=== PATIENT | female | born 1995 | race Two or more races ===

== ENCOUNTER 2017-01-03 10:45 | Inpatient (IN) | payer MEDICAID ==
[2017-01-03] MEDS ORDERED: Misoprostol 400 MCG (4 X 100 MCG TAB) RECTAL PRN (11:58)
[2017-01-03] MEDS ORDERED: Carboprost Tromethamine 250 MCG/1 ML Amp IM PRN (11:58)
[2017-01-03] MEDS ORDERED: Methylergonovine 0.2 MG/1 ML Amp IM PRN (11:58)
[2017-01-03] MEDS ORDERED: Acetaminophen 325 MG Tab PO PRN ×2 (11:58)
[2017-01-03] MEDS ORDERED: Ondansetron 4 MG/2 ML SDV IV PRN (11:58)
[2017-01-03] MEDS ORDERED: Lidocaine 1% 30 ML SDV INJECT PRN (11:58)
[2017-01-03] MEDS ORDERED: Sodium Chloride 0.9% 10 ML Syringe FLUSH PRN (11:58)
[2017-01-03] MEDS ORDERED: Lactated Ringers 500 ML IV ONE (11:58)
[2017-01-03] MEDS: Misoprostol 25 MCG (1/4 of 100 MCG) Tab VAG PRN ×3 (12:59→21:37)
--- NOTE | 2017-01-03 15:04 | HP ---
PATIENT IDENTIFICATION: Ligia Sanchez is a 21-year-old G1, P0, intrauterine at 37-4/7 weeks, confirmed with 21-1/7th week ultrasound that is being admitted for preeclampsia. HISTORY OF PRESENT ILLNESS: The patient was seen in the clinic this morning. Had blood pressures of 140s to 130s over 90s. Workup was done for preeclampsia, it did reveal protein creatinine ratio of 0.3. She was sent over the hospital for a nonstress test and evaluation and had elevated blood pressures there. Because of this, it was discussed that patient has preeclampsia suspected, and induction labor will be started with Cytotec. She had an unripe cervix. Please see below in regards to this. The patient denies any headaches, visual changes, or upper abdominal pain. Records were called for, reviewed as below and supplemented by patient history. ANTEPARTUM LABORATORY DATA: ABO blood type O positive, negative antibody. Rubella immune. RPR nonreactive. Negative hepatitis B surface antigen. Negative hep C, HIV, GC, and Chlamydia. Wet prep within normal limits. One- hour GTT was 100. GBS negative on 12/20/2016. For the rest of the history and physical exam, assessment and plan, review of systems, please see EPIC notes to be scanned in. LABORATORY DATA: Labs from today through the clinic did reveal a protein creatinine ratio 0.3. CBC with a white cell count 8.3, hemoglobin 11.6, platelets were 349. Urinalysis, otherwise within normal limits. Waiting AST, ALT, BUN, creatinine, as well as uric acid. ASSESSMENT AND PLAN: 1. Intrauterine at 37-4/7th weeks, confirmed 21-1/7th week ultrasound. 2. Preeclampsia with hypertension diagnosed, and urine protein creatinine ratio at 0.3. 3. Group B Streptococcus negative. 4. Positive THC on urine drug screen 06/20/2016. 5. VB-treated. 6. G1, P0. PLAN: The patient will be admitted. I did discuss with her using Cytotec type induction. I discussed risks, benefits, alternatives, and complications of Cytotec use. Written and verbal consent obtained. Questions were answered. [facility] /[id number]
--- NOTE | 2017-01-03 15:07 | OBOUT ---
DATE: 01/03/2017 DATE AND TIME OF NST: Date: 01/03/2017. TIME: 1100 hours to 1120 hours. REASON FOR NST: 1. Intrauterine at 37-4/7th weeks. 2. Preeclampsia. 3. Group B strep negative. 4. Positive THC on urine drug screen 06/20/2006. 5. BV-treated. 6. G1, P0. NST INTERPRETATION: During this time period, heart tone baseline is approximately 145 and there are at least two 15 x 15 beat per minute accelerations, making this strip reactive. It is also noted to be reassuring. Tocometer reveals no evidence of contraction. Blood pressure during this time 142/76, with a heart rate of 72. ASSESSMENT: 1. Non-stress test reactive and reassuring. 2. Tocometer without contractions. PLAN: Please see admit history and physical for further details. [facility] /[id number]
[2017-01-04] MEDS: Misoprostol 25 MCG (1/4 of 100 MCG) Tab VAG PRN ×2 (01:49→08:12)
[2017-01-04] MEDS: Lactated Ringers 1,000 ML IV SCH ×3 (02:44→17:40)
[2017-01-04] MEDS ORDERED: Oxytocin/Normal Saline 30 UNITS/500 ML BAG IV SCH (08:30)
--- NOTE | 2017-01-04 11:11 | PN ---
DATE: 01/03/2017 SUBJECTIVE: The patient has felt occasional contraction, nothing serious, and they seems to wax and wane. She denies any headaches, visual changes, or upper abdominal pain. OBJECTIVE: heart tones in the 120s with one acceleration seen recently, tocometer reveals occasional contraction. Vaginal exam reveals her to be finger tip, 50% effaced, -1 or -2 station, vertex suspected, and Cytotec 25 mcg vaginally was placed, and this is her third dose after discussion with the patient. Last blood pressure 152/70. ASSESSMENT AND PLAN: Intrauterine at 37-4/7 weeks confirmed with 21- 1/7 week ultrasound, complicated by preeclampsia, no severe features at this point in time. We will continue with Cytotec-type induction. Follow clinically and closely. This was discussed with the patient, she understands and agrees with the above treatment plan. [facility] /[id number]
--- NOTE | 2017-01-04 11:38 | PN ---
DATE: 01/04/2017 SUBJECTIVE: The patient had some contractions through the timber management professor to the point that Cytotec could not be placed between 4 and 5 a.m. Subsequently, the patient was in the tub for a while. Her contractions abated thereafter. She has not felt any contractions currently and is sleeping. She denies any headaches, visual changes, or upper abdominal pain. OBJECTIVE: Her last blood pressure was 120s over 70s. Tocometer reveals occasional contraction. Her heart tones are in the 120s-130s, felt to be reactive and reassuring. Vaginal exam reveals her to be finger tip, 50% effaced, -1 to -2 station, vertex expected and 25 mcg of Cytotec was placed vaginally after discussion with the patient. ASSESSMENT AND PLAN: Intrauterine now at 37 and 5/7th weeks, confirmed with 21 and 1/7th weeks ultrasound, status post Cytotec x5, complicated by preeclampsia. No severe features at the current time. CBC will be drawn later today to follow for any evidence of thrombocytopenia or HELLP and we will follow closely and clinically. The patient understands and agrees with the above treatment plan. [facility] /[id number]
[2017-01-04] MEDS ORDERED: Oxytocin/Normal Saline 30 UNIT/500 ML BAG IV SCH (12:15)
--- NOTE | 2017-01-04 12:43 | PN ---
DATE: 01/04/2017 SUBJECTIVE: Patient feels occasional contractions. OBJECTIVE: heart tones in the 135 to 140, range felt to be reactive. Tocometer reveals contractions every couple of minutes at the closest, otherwise they are irregular. Vaginal exam reveals her to be unchanged from before. Finger tip, unable to insert finger into the cervix, with 50% effaced, -1 to - 2 station, vertex suspected. ASSESSMENT AND PLAN: Intrauterine at 37 and 5/7th weeks confirmed with 21 and 1/7th week ultrasound complicated by preeclampsia. CBC done earlier today does not reveal evidence of thrombocytopenia. She is now status post Cytotec x5 and we will start low-dose Pitocin and follow closely. Orders have been instituted and this has been discussed with nurses as well. We will continue to follow clinically and closely. [facility] /[id number]
[2017-01-04] MEDS ORDERED: Nalbuphine 10 MG/1 ML Vial IM ONE (16:30)
--- NOTE | 2017-01-04 20:46 | PCM.SN ---
- Free Text/Narrative Note: Intrathecal. Sitting position, sterile prep and drape. 1 % lidocaine w bicarb for skinwheal to L3 L4 interspace, introducer, 24 ga pencan x 1. Pos CSF neg heme, neg parasthesia. 15 mcg pf sufenta, 35 mcg pf fentanyl, 0.4 ml pf ns and 6 mg of 0.75% pf bupivacaine injected after CSF aspiration. Pt to L lateral position. Procedure time 2024 to 2049
[2017-01-04] MEDS ORDERED: Benzocaine/Menthol 20%-0.5% Spray 56 GM Canister TOP PRN (21:41)
[2017-01-04] MEDS ORDERED: Docusate Sodium 100 MG Cap PO PRN (21:41)
[2017-01-04] MEDS ORDERED: Simethicone 80 MG Tab.Chew PO PRN (21:41)
[2017-01-04] MEDS ORDERED: Oxytocin 10 Units/1 ML SDV IM PRN (21:41)
[2017-01-04] MEDS ORDERED: Zolpidem 5 MG Tab PO PRN (21:41)
[2017-01-04] MEDS ORDERED: cefTRIAXone 1 GM in Sodium Chloride 0.9% 50 ML IV ONE (21:51)
[2017-01-04] MEDS: Ibuprofen 800 MG Tab PO PRN (22:37)
[2017-01-04] MEDS: Acetaminophen/HYDROcodone 325-10 MG Tab PO PRN (23:07)
[2017-01-05] MEDS: Acetaminophen/HYDROcodone 325-10 MG Tab PO PRN (03:00)
--- NOTE | 2017-01-05 08:25 | PN ---
DATE: 01/04/2017 SUBJECTIVE: The patient's contractions are felt in the lower back, radiating down to the butt area, almost as if she has to have a bowel movement, coming every so often. She has refused Pitocin at this point in time and has been asking for a . OBJECTIVE: Vital signs: Last blood pressure 144/61, heart rate 64. heart tones in the 120s, baseline range, acceleration noted with vaginal exam. Tocometer reading contractions every 3 to 5-6 minutes. Vaginal exam reveals her to be 9 cm, 100% effaced, 0 to - 1 station, vertex suspected. ASSESSMENT AND PLAN: Active labor with advanced cervical dilation, nearing the second stage of labor. The patient is requesting an intrathecal. At this point in time, anesthesia has been called to proceed with some sort of spinal intrathecal anesthesia. We will continue to follow maternal status closely in the interim. This was discussed with the patient. Room will be set up for delivery. [facility] /[id number]
--- NOTE | 2017-01-05 08:49 | DEL ---
DATE: 01/04/2017 PREOPERATIVE DIAGNOSES: 1. Intrauterine at 37-5/7 weeks, confirmed with 21-1/7 week's ultrasound. 2. bradycardia. 3. Preeclampsia-mild. 4. Group B Streptococcus negative. 5. Positive THC on urine drug screen on 06/20/2016, negative on admission. 6. Bacterial vaginosis-treated. 7. 1, para 0. POSTOPEARTIVE DIAGNOSES: 1. Intrauterine at 37-5/7 weeks, confirmed with 21-1/7 week's ultrasound-delivered. 2. bradycardia. 3. Preeclampsia-mild. 4. Group B Streptococcus negative. 5. Positive THC on urine drug screen on 06/20/2016, negative on admission. 6. Bacterial vaginosis-treated. 7. 1, para 0. 8. hemorrhage with estimated blood loss of 500 mL. 9. Uterine atony, requiring Hemabate. 10.Retained placental parts, requiring bimanual examination and uterine curettage via fingers, removing placental membranes. 11.First-degree perineal laceration-repaired. PROCEDURE PERFORMED: NST, Cytotec x5, Pitocin augmentation, and then subsequently vacuum-assisted vaginal delivery with first-degree perineal laceration-repaired, followed by bimanual uterine curettage, removing placental membranes. STACKER ATTENDANT: Rj Kevin, MS III. ANESTHESIA/ANAGLESIA: The patient did receive an intrathecal in the first stage of labor. She also received 1% lidocaine without epinephrine, approximately 10 mL, for local repair. FINDINGS: Male, scores of 8 and 9, weight was 3035 g, 6 pounds 11 ounces. Trailing membranes were noted as well as bimanual uterine curettage, revealing removal of placental parts. SUMMARY OF EVENTS: The patient is a 21-year-old G1, P0 intrauterine at 37-4/7 weeks upon admission on 01/03/2017, diagnosed with preeclampsia-mild, induced with Cytotec x5, followed by Pitocin augmentation. She was very slow to progress until the last 2 hours and was found to be 9 cm, requesting something for pain. Received an intrathecal/saddle block. Subsequently, there was noted to be some heart tones that were in a deceleration pattern, but unable to detect contractions very well on the tocometer. I was called to the room, donned sterile gown and gloves as well as did Rj Kevin. She started pushing with contraction. bradycardia ensued thereafter with heart tones in the 80s to 90s. Because of this, bladder was catheterized with return of 20 mL of a yellow-colored urine. The catheter was removed. Subsequently discussion ensued in regard to vacuum-assisted vaginal delivery. I did discuss with the patient and her female partner the risks, benefits, alternatives and complications of vacuum-assisted vaginal delivery. They understood and agreed and wished to proceed. Subsequently, the patient pushed with the next contraction, vertex was seen splitting the labia and Kiwi vacuum was applied. With the next set of contractions, patient started pushing with contractions, and during this time period, Kiwi vacuum was pumped up to the green, and with gentle pulling pressure, further descent was noted. With a few more sets of contractions, subsequently vertex was delivered. Vacuum was disengaged. There was some difficulty delivering the anterior shoulder. The baby had turned from PARTH to a LANE presentation. Subsequently, anterior shoulder as well as the rest of the infant delivered without difficulty thereafter. Mouth and nares were suctioned. Cord was doubly clamped and cut. Infant was brought over to team. Then, approximately 10 mL of cord blood was obtained for labs. Placenta then delivered with gentle cord traction and fundal massage within 5-15 minutes. There was noted to be some significant bleeding at that time. Uterine atony was noted. Pitocin was started as well as uterine massage. Despite this, continued bleeding was noted. Hemabate was called for and given. With delivery of the placenta, there was noted to be some trailing membranes. This was teased out with ring forceps. Because of continued bleeding despite the above modifications, bimanual exam was done with finger uterine curettage of the lower uterine segment revealing placental membranes, which were removed. Bleeding decreased significantly thereafter. Perineum, vagina, and perirectal areas were then examined and noted to have a first-degree perineal laceration that was anesthetized in the usual fashion and repaired in the usual fashion using 3-0 Vicryl. Mother and infant are currently stable at the time of dictation. [facility] /[id number] [facility]IC[facility]ney
[2017-01-05] MEDS: Ibuprofen 800 MG Tab PO PRN ×2 (09:17→17:29)
[2017-01-05] MEDS: Ferrous Sulfate 325 MG Tab PO SCH (09:17)
[2017-01-05] MEDS: Prenatal Multivitamin with Calcium/Folic Acid/Iron Tab PO SCH (09:19)
[2017-01-06] MEDS: Ibuprofen 800 MG Tab PO PRN (09:06)
[2017-01-06] MEDS: Prenatal Multivitamin with Calcium/Folic Acid/Iron Tab PO SCH (09:07)
[2017-01-06] MEDS: Ferrous Sulfate 325 MG Tab PO SCH (09:07)
[2017-01-06 11:31] VITALS: BP 117/45
--- NOTE | 2017-01-06 11:31 | DISCH ---
ADMIT DIAGNOSES: 1. Intrauterine at 37-4/7 weeks, confirmed with 21-1/7 week's ultrasound. 2. Preeclampsia-mild. 3. Group B Streptococcus negative. 4. Positive THC on urine drug screen on 06/20/2016, negative upon admission. 5. Bacterial vaginosis-treated. 6. 1, para 0. DISCHARGE DIAGNOSES: 1. Intrauterine at 37-4/7 weeks, confirmed with 21-1/7 week's ultrasound-delivered at 37-5/7 weeks. 2. Preeclampsia-mild. 3. Group B Streptococcus negative. 4. Positive THC on urine drug screen on 06/20/2016, negative upon admission. 5. Bacterial vaginosis-treated. 6. 1, para 0. 7. hemorrhage, estimated blood loss 500 mL. 8. Uterine atony, requiring Hemabate. 9. Retained placental parts, requiring bimanual curettage of lower uterine segment/uterus. 10. bradycardia. 11.First-degree perineal laceration-repaired. 12.Anemia of acute blood loss with hemoglobin dropping down to 9.8 from 10.9. PROCEDURE PERFORMED: NST, Cytotec x5, Pitocin augmentation, and then subsequent vacuum-assisted vaginal delivery on 01/04/2017. These were all per Dr. Germain. Please see procedure notes for further details. HISTORY OF PRESENT ILLNESS: Please see H and P. SUMMARY OF HOSPITAL COURSE: Patient admitted on the above date with the above diagnoses with mild preeclampsia, underwent the above interventions for induction of labor. She subsequently went on to have a vacuum-assisted vaginal delivery with first-degree perineal laceration that was repaired, yielding a male with scores of 8 and 9, weighing 3035 g (6 pounds 11 ounces). day #1, please progress note. day #2, on date of discharge, the patient was tolerating p.o., ambulating, urinating, passing flatus, requesting discharge. Last set of vitals updated and listed in the chart. PHYSICAL EXAMINATION: Vial Signs: Temperature 98, heart rate 61, blood pressure 117/53, respiratory rate is 16. Lungs: Clear to auscultation bilaterally. Heart: S1, S2. Regular rate and rhythm. : Firm uterus at the umbilicus. Extremities: Trace pedal edema. No calf pain. LABORATORY DATA: Pending is a discharge CBC. CONDITION ON DISCHARGE COMPARED TO CONDITION ON ADMISSION: Improved. DISCHARGE INSTRUCTIONS: 1. Diet, as tolerated. 2. Activity, no lifting more than 10 to 15 pounds. 3. No sit-ups, straining and pelvic rest for next 6 weeks with immediate return to fertility discussed with the patient. 4. Reasons to return or go to the emergency room were discussed with the patient in detail including, but not limited to, temperature greater than 100.4, foul-smelling discharge, red, hot tender breasts, or increased vaginal bleeding. DISCHARGE MEDICATIONS: 1. [id number] Tylenol or ibuprofen for pain. 2. Iron sulfate 325 b.i.d. x6 weeks. FOLLOWUP: Follow up 6 weeks for . PLAN: I did discuss the importance of followup of her infant as well as reasons to return or go to the emergency room in the interim with her and ramifications of not doing so. She understands and agrees. Will follow up with her infant on 01/09/2017. [facility] /[id number]
[2017-01-06] MEDS ORDERED: fentaNYL 100 MCG/2 ML SDV IV ONE (11:58)
--- NOTE | 2017-01-10 07:56 | PN ---
DATE: 01/05/2017 day #1. SUBJECTIVE: The patient is tolerating POs, ambulating, urinating, and passing flatus. OBJECTIVE: Vital Signs: Last set of vitals updated and listed in the chart; temperature 97.8, heart 73, blood pressure 105/47, respiratory rate 16. Lungs: Clear to auscultation bilaterally. Heart: S1, S2. Regular rate and rhythm. : Firm uterus approximately at the umbilicus. No peripheral edema. LABORATORY DATA: Labs on 01/05/2017, white cell count 16, hemoglobin 9.8, platelets 256. ASSESSMENT: day #1, status post vaginal delivery with vacuum- assisted vaginal delivery and first-degree perineal laceration repaired followed by bimanual removal of uterine clots and removing placental membranes. PLAN: We will continue to follow clinically and closely. CBC in the morning. Possible discharge tomorrow. [facility] /[id number]
== END 2017-01-06 11:59 | disposition home or self-care (01) | DRG 767 ==
LOC: DL.OBCHECK 10:45 → DL.OB 11:48 → OBSVTOIN 01-04 21:06
PROVIDERS: ADMIT Family Medicine; ATTEND Family Medicine
PROC: 10D07Z6 Extraction of Products of Conception, Vacuum, Via Natural or Artificial Opening (ICD-10-PCS; principal; 2017-01-04)
PROC: 10D17ZZ Extraction of Products of Conception, Retained, Via Natural or Artificial Opening (ICD-10-PCS; 2017-01-04)
PROC: 3E0P7GC Introduction of Other Therapeutic Substance into Female Reproductive, Via Natural or Artificial Opening (ICD-10-PCS; 2017-01-04)
PROC: 00HU33Z Insertion of Infusion Device into Spinal Canal, Percutaneous Approach (ICD-10-PCS; 2017-01-04)
PROC: 3E0R3CZ (ICD-10-PCS; 2017-01-04)
PROC: 0HQ9XZZ Repair Perineum Skin, External Approach (ICD-10-PCS; 2017-01-04)
DX: O14.04 Mild to moderate pre-eclampsia, complicating childbirth (principal); D62 Acute posthemorrhagic anemia; O70.0 First degree perineal laceration during delivery; O72.1 Other immediate postpartum hemorrhage; O72.2 Delayed and secondary postpartum hemorrhage; O75.3 Other infection during labor; O90.81 Anemia of the puerperium; O76 Abnormality in fetal heart rate and rhythm complicating labor and delivery; Z3A.37 37 weeks gestation of pregnancy; Z37.0 Single live birth; N76.0 Acute vaginitis
CPT/HCPCS: 01967; 36415; 59025; 80305; 85027; A9270-GY; J0696; J2405; J2590; J3010; J7050; J7120

== ENCOUNTER 2017-08-07 15:28 | Emergency (ER) | payer MEDICAID ==
[2017-08-07 15:44] VITALS: BP 130/86
== END 2017-08-07 16:25 | disposition left against medical advice (07) ==
LOC: DL.ED 15:28
DX: Z53.21 Procedure and treatment not carried out due to patient leaving prior to being seen by health care provider (principal)
CPT/HCPCS: 81001; 81025; 99282

== ENCOUNTER 2017-08-19 12:43 | Emergency (ER) | payer BC, MEDICAID ==
[2017-08-19 13:16] VITALS: BP 123/75
[2017-08-19] MEDS ORDERED: Sodium Chloride 0.9% 1,000 ML IV ONE (13:24)
--- NOTE | 2017-08-19 13:24 | EDM.PDOC ---
ED HPI GENERAL MEDICAL PROBLEM - General Chief Complaint: Abdominal Pain Stated Complaint: LOWER ABD PAINS, [id number] Time Seen by Provider: 08/19/17 13:23 Source of Information: Reports: Patient History Limitations: Reports: No Limitations - History of Present Illness INITIAL COMMENTS - FREE TEXT/NARRATIVE: 22 yo white Female c/o low mid abdomen pain and bladder spasms. Also frequent urination X 2 weeks. Seen at PCP office yesterday. Onset Date: 08/05/17 Onset Time: 12:00 Duration: Week(s): Location: Reports: Abdomen Quality: Reports: Pressure Severity: Moderate Improves with: Reports: None Worsens with: Reports: None Associated Symptoms: Reports: No Other Symptoms Left Lower Abdomen Pain Score (Numeric/FACES): 7 - Related Data Allergies Allergy/AdvReac Type Severity Reaction Status Date / Time No Known Allergies Allergy Verified 08/07/17 15:43 Home Meds: Home Meds . 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: Musculoskeletal History: Reports: None Neurological History: Reports: None Psychiatric History: Reports: None Endocrine/Metabolic History: Reports: None Hematologic History: Reports: None Immunologic History: Reports: None Oncologic (Cancer) History: Reports: None Dermatologic History: Reports: None - Infectious Disease History Infectious Disease History: Reports: Chicken Pox - Past Surgical History Head Surgeries/Procedures: Reports: None HEENT Surgical History: Reports: Oral Surgery Social & Family History - Family History Family Medical History: Noncontributory - Tobacco Use Smoking Status *Q: Current Every Day Smoker Years of Tobacco use: 5 Packs/Tins Daily: 0.5 Used Tobacco, but Quit: No Second Hand Smoke Exposure: No - Caffeine Use Caffeine Use: Reports: Coffee, Soda - Alcohol Use Days Per Week of Alcohol Use: 0 - Recreational Drug Use Recreational Drug Use: Yes Drug Use in Last 12 Months: Yes Recreational Drug Type: Reports: Marijuana/Hashish Recreational Drug Use Frequency: Monthly - Living Situation & Occupation Living situation: Reports: with Family Occupation: Employed ED ROS GENERAL - Review of Systems Review Of Systems: See Below Constitutional: Reports: No Symptoms HEENT: Reports: No Symptoms Respiratory: Reports: No Symptoms Cardiovascular: Reports: No Symptoms Endocrine: Reports: No Symptoms GI/Abdominal: Reports: Abdominal Pain (low mid) : Reports: Frequency Musculoskeletal: Reports: No Symptoms Skin: Reports: No Symptoms Neurological: Reports: No Symptoms Psychiatric: Reports: No Symptoms Hematologic/Lymphatic: Reports: No Symptoms Immunologic: Reports: No Symptoms ED EXAM, GI/ABD - Physical Exam Exam: See Below Exam Limited By: No Limitations General Appearance: Alert, WD/WN, No Apparent Distress Eyes: Bilateral: EOMI Ears: Normal External Exam Nose: Normal Inspection Throat/Mouth: Normal Inspection Head: Atraumatic Neck: Normal Inspection Respiratory/Chest: No Respiratory Distress, Lungs Clear Cardiovascular: Normal Peripheral Pulses, Regular Rate, Rhythm GI/Abdominal Exam: Tender (suprapubic area) Back Exam: Normal Inspection Extremities: Normal Inspection, Normal Range of Motion Neurological: Alert, Oriented, CN II-XII Intact Psychiatric: Normal Affect, Normal Mood Skin Exam: Warm, Dry, Intact, Normal Color Lymphatic: No Adenopathy Course - Vital Signs Last Recorded V/S: Last Vital Signs Temp 36.0 C 08/19/17 13:15 Pulse 76 08/19/17 13:15 Resp 16 08/19/17 13:15 BP 123/75 08/19/17 13:15 Pulse Ox 100 08/19/17 13:15 - Orders/Labs/Meds Orders: Active Orders 24 hr Category Date Time Status CULTURE URINE [RM] Stat Lab 08/19/17 14:04 Uncollected Sodium Chloride 0.9% [Normal Saline] 1,000 ml Med 08/19/17 13:24 Active IV .BOLUS cefTRIAXone [Rocephin] 1 gm Med 08/19/17 14:04 Ordered Sodium Chloride 0.9% [Normal Saline] 50 ml IV ONETIME Medication Orders Sodium Chloride (Normal Saline) 1,000 mls @ 999 mls/hr IV .BOLUS ONE Stop: 08/19/17 14:24 Last Admin: 08/19/17 13:42 Dose: 999 mls/hr Ceftriaxone Sodium 1 gm/ (Sodium Chloride) 50 mls @ 100 mls/hr IV ONETIME ONE Stop: 08/19/17 14:33 Labs: Laboratory Tests 10/28/17 10/28/17 10/28/17 Range/Units 13:27 13:35 13:35 WBC 15.3 H (5.0-10.0) 10^3/uL RBC 4.60 (4.2-5.4) 10^6/uL Hgb 13.3 D (12.0-16.0) g/dL Hct 40.8 (37.0-47.0) % MCV 88.7 D (80-100) fL MCH 28.9 (27.0-34.0) pg MCHC 32.6 L (33.0-35.0) g/dL Plt Count 515 H D (150-450) 10^3/uL Neut % (Auto) 76.8 H (42.2-75.2) % Lymph % (Auto) 14.9 L (20.5-50.1) % [place] % (Auto) 7.4 (2-8) % Eos % (Auto) 0.7 L (1.0-3.0) % Baso % (Auto) 0.2 (0.0-1.0) % Add Manual Diff Yes Neutrophils % (Manual) 75 (42-75) % Lymphocytes % (Manual) 16 L (20-50) % Monocytes % (Manual) 8 (2-8) % Eosinophils % (Manual) 1 (1-3) % Sodium 139 (135-145) mmol/L Potassium 4.3 (3.6-5.0) mmol/L Chloride 101 (101-111) mmol/L Carbon Dioxide 29.0 (21.0-31.0) mmol/L Anion Gap 13.3 BUN 8 (7-18) mg/dL Creatinine 0.6 (0.6-1.3) mg/dL Est Cr Clr Drug Dosing 127.00 mL/min Estimated GFR (MDRD) > 60 BUN/Creatinine Ratio 13.33 Glucose 96 (74-105) mg/dL Calcium 9.0 (8.4-10.2) mg/dl Total Bilirubin 0.4 (0.2-1.0) mg/dL AST 16 (10-42) IU/L ALT 12 (10-60) IU/L Alkaline Phosphatase 92 (42-121) IU/L Total Protein 7.4 (6.7-8.2) g/dl Albumin 3.6 (3.2-5.5) g/dl Globulin 3.8 Albumin/Globulin Ratio 0.95 Urine Color Yellow (YELLOW) Urine Appearance Slightly cloudy (CLEAR) Urine pH 7.5 (5.0-9.0) Ur Specific Distant 1.015 (1.005-1.030) Urine Protein Negative (NEGATIVE) Urine Glucose (UA) Negative (NEGATIVE) Urine Ketones Negative (NEGATIVE) Urine Occult Blood Small H (NEGATIVE) Urine Nitrite Negative (NEGATIVE) Urine Bilirubin Negative (NEGATIVE) Urine Urobilinogen 0.2 (0.2-1.0) mg/dL Ur Leukocyte Esterase Small H (NEGATIVE) Urine RBC 0-5 /HPF Urine WBC 20-30 H (0-5/HPF) /HPF Ur Epithelial Cells Rare /HPF Urine Bacteria Few (0-FEW/HPF) /HPF Meds: Medications Generic Name Dose Route Start Last Admin Trade Name Freq PRN Reason Stop Dose Admin Sodium Chloride 1,000 mls @ 999 mls/hr 08/19/17 13:24 08/19/17 13:42 Normal Saline IV 08/19/17 14:24 999 mls/hr .BOLUS ONE Administration Ceftriaxone Sodium 1 gm/ 50 mls @ 100 mls/hr 08/19/17 14:04 Sodium Chloride IV 08/19/17 14:33 ONETIME ONE Departure - Departure Time of Disposition: 14:06 Disposition: Home, Self-Care 01 Condition: Good Clinical Impression: UTI (urinary tract infection) Qualifiers: Urinary tract infection type: acute cystitis Hematuria presence: with hematuria Qualified Code(s): N30.01 - Acute cystitis with hematuria - Discharge Information Forms: ED Department Discharge Additional Instructions: Increase intake of Water and Cranberry Juice Take Medication as prescribed only and complete AMOXIL 500mg BID # 18 PYRIDIUM 100mg TID # 9 F/U w/ PCP in one week for urine re-check - My Orders Last 24 Hours: My Active Orders 08/19/17 13:24 Sodium Chloride 0.9% [Normal Saline] 1,000 ml IV .BOLUS 08/19/17 14:04 CULTURE URINE [RM] Stat cefTRIAXone [Rocephin] 1 gm Sodium Chloride 0.9% [Normal Saline] 50 ml IV ONETIME - Assessment/Plan Last 24 Hours: My Active Orders 08/19/17 13:24 Sodium Chloride 0.9% [Normal Saline] 1,000 ml IV .BOLUS 08/19/17 14:04 CULTURE URINE [RM] Stat cefTRIAXone [Rocephin] 1 gm Sodium Chloride 0.9% [Normal Saline] 50 ml IV ONETIME
[2017-08-19 13:59] LABS: CHLORIDE,CL 101 mmol/L (101-111); SODIUM,NA 139 mmol/L (135-145)
[2017-08-19] MEDS ORDERED: cefTRIAXone 1 GM in Sodium Chloride 0.9% 50 ML IV ONE (14:04)
== END 2017-08-19 14:35 | disposition home or self-care (01) ==
LOC: DL.ED 12:43
DX: N30.01 Acute cystitis with hematuria (principal); F17.210 Nicotine dependence, cigarettes, uncomplicated
CPT/HCPCS: 36415; 80053; 81001; 85025; 87086; 96365; 99284; J0696; J7030; J7050

== ENCOUNTER 2017-09-30 11:09 | Emergency (ER) | payer BC, MEDICAID ==
--- NOTE | 2017-09-30 11:46 | EDM.PDOC ---
ED HPI GENERAL MEDICAL PROBLEM - General Chief Complaint: Abdominal Pain Stated Complaint: LLQ SHARP PAIN [id number] Time Seen by Provider: 09/30/17 11:37 Source of Information: Reports: Patient, RN, RN Notes Reviewed History Limitations: Reports: No Limitations - History of Present Illness INITIAL COMMENTS - FREE TEXT/NARRATIVE: Pt presents to the ER with c/o left lower quadrant abdominal pain that wraps around to the back. She rates the pain #7/10. She states she feels the need to push hard when she has to void. She admits to a UTI about 1 month ago. She states LMP was about 1 month ago, but menses fluctuate as she has a Mirena. She states she also feels the need to have a BM. Last BM was 2 days ago. Onset: Gradual Location: Reports: Abdomen, Back Quality: Reports: Pressure, Sharp Severity: Moderate Improves with: Reports: None Worsens with: Reports: None Associated Symptoms: Reports: No Other Symptoms Left Lower Abdomen Pain Score (Numeric/FACES): 7 - Related Data Allergies Allergy/AdvReac Type Severity Reaction Status Date / Time No Known Allergies Allergy Verified 08/07/17 15:43 Home Meds: Home Meds . 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: Musculoskeletal History: Reports: None Neurological History: Reports: None Psychiatric History: Reports: None Endocrine/Metabolic History: Reports: None Hematologic History: Reports: None Immunologic History: Reports: None Oncologic (Cancer) History: Reports: None Dermatologic History: Reports: None - Infectious Disease History Infectious Disease History: Reports: Chicken Pox - Past Surgical History Head Surgeries/Procedures: Reports: None HEENT Surgical History: Reports: Oral Surgery Social & Family History - Family History Family Medical History: Noncontributory - Tobacco Use Smoking Status *Q: Current Every Day Smoker Years of Tobacco use: 5 Packs/Tins Daily: 0.5 Used Tobacco, but Quit: No Second Hand Smoke Exposure: No - Caffeine Use Caffeine Use: Reports: Coffee, Energy Drinks, Soda - Alcohol Use Days Per Week of Alcohol Use: 2 Number of Drinks Per Day: 6 Total Drinks Per Week: 12 - Recreational Drug Use Recreational Drug Use: Yes Drug Use in Last 12 Months: Yes Recreational Drug Type: Reports: Marijuana/Hashish, Methamphetamine Recreational Drug Use Frequency: Monthly - Living Situation & Occupation Living situation: Reports: with Family Occupation: Employed ED ROS GENERAL - Review of Systems Review Of Systems: ROS reveals no pertinent complaints other than HPI. ED EXAM, GI/ABD - Physical Exam Exam: See Below Exam Limited By: No Limitations General Appearance: Alert, WD/WN, No Apparent Distress Eyes: Bilateral: EOMI Ears: Normal External Exam, Hearing Grossly Normal Nose: Normal Inspection Throat/Mouth: Normal Inspection, Normal Voice, No Airway Compromise Head: Atraumatic, Normocephalic Neck: Normal Inspection, Supple, Non-Tender, Full Range of Motion Respiratory/Chest: No Respiratory Distress, Lungs Clear, Normal Breath Sounds, No Accessory Muscle Use, Chest Non-Tender Cardiovascular: Normal Peripheral Pulses, Regular Rate, Rhythm, No Edema, No Gallop, No JVD, No Murmur, No Rub GI/Abdominal Exam: Normal Bowel Sounds, Soft, No Organomegaly, No Distention, No Abnormal Bruit, No Mass, Tender (LLQ) (Female) Exam: Deferred Rectal (Female) Exam: Deferred Back Exam: Normal Inspection, Full Range of Motion Extremities: Normal Inspection, Normal Range of Motion, Non-Tender, Normal Capillary Refill, No Pedal Edema Neurological: Alert, Oriented, CN II-XII Intact, Normal Cognition, Normal Gait, Normal Reflexes, No Motor/Sensory Deficits Psychiatric: Normal Affect, Normal Mood Skin Exam: Warm, Dry, Intact, Normal Color, No Rash Lymphatic: No Adenopathy Course - Vital Signs Last Recorded V/S: Last Vital Signs Temp 98.1 F 09/30/17 16:45 Pulse 117 H 09/30/17 16:45 Resp 14 09/30/17 16:45 BP 120/68 09/30/17 16:45 Pulse Ox 100 09/30/17 16:45 - Orders/Labs/Meds Orders: Active Orders 24 hr Category Date Time Status Peripheral IV Care [RC] . DIRECTED Care 09/30/17 12:38 Active Peripheral IV Insertion Adult [OM.PC] Stat Oth 09/30/17 12:38 Ordered Labs: Laboratory Tests 1209/30/17 09/30/17 Range/Units 11:54 11:54 12:01 WBC 17.6 H (5.0-10.0) 10^3/uL RBC 4.63 (4.2-5.4) 10^6/uL Hgb 13.6 (12.0-16.0) g/dL Hct 39.7 (37.0-47.0) % MCV 85.7 D (80-100) fL MCH 29.4 (27.0-34.0) pg MCHC 34.3 (33.0-35.0) g/dL Plt Count 372 D (150-450) 10^3/uL Neut % (Auto) 81.2 H (42.2-75.2) % Lymph % (Auto) 8.9 L (20.5-50.1) % [place] % (Auto) 9.4 H (2-8) % Eos % (Auto) 0.4 L (1.0-3.0) % Baso % (Auto) 0.1 (0.0-1.0) % Sodium 136 (135-145) mmol/L Potassium 3.6 (3.6-5.0) mmol/L Chloride 105 (101-111) mmol/L Carbon Dioxide 22.0 (21.0-31.0) mmol/L Anion Gap 12.6 BUN 8 (7-18) mg/dL Creatinine 0.7 (0.6-1.3) mg/dL Est Cr Clr Drug Dosing 108.32 mL/min Estimated GFR (MDRD) > 60 BUN/Creatinine Ratio 11.42 Glucose 93 (74-105) mg/dL Calcium 8.8 (8.4-10.2) mg/dl Total Bilirubin 0.7 (0.2-1.0) mg/dL AST 16 (10-42) IU/L ALT 14 (10-60) IU/L Alkaline Phosphatase 85 (42-121) IU/L Total Protein 7.2 (6.7-8.2) g/dl Albumin 3.9 (3.2-5.5) g/dl Globulin 3.3 Albumin/Globulin Ratio 1.18 Urine Color (YELLOW) Urine Appearance (CLEAR) Urine pH (5.0-9.0) Ur Specific [place] (1.005-1.030) Urine Protein (NEGATIVE) Urine Glucose (UA) (NEGATIVE) Urine Ketones (NEGATIVE) Urine Occult Blood (NEGATIVE) Urine Nitrite (NEGATIVE) Urine Bilirubin (NEGATIVE) Urine Urobilinogen (0.2-1.0) mg/dL Ur Leukocyte Esterase (NEGATIVE) Urine RBC /HPF Urine WBC (0-5/HPF) /HPF Ur Epithelial Cells /HPF Urine Bacteria (0-FEW/HPF) /HPF Urine Mucus /LPF Urine HCG, Qual Urine Opiates Screen Negative (NEGATIVE) Ur Oxycodone Screen Negative (NEGATIVE) Urine Methadone Screen Negative (NEGATIVE) Ur Barbiturates Screen Negative (NEGATIVE) U Tricyclic Antidepress Negative (NEGATIVE) Ur Phencyclidine Scrn Negative (NEGATIVE) Ur Amphetamine Screen Positive H (NEGATIVE) U Methamphetamines Scrn Positive H (NEGATIVE) Urine MDMA Screen Positive H (NEGATIVE) U Benzodiazepines Scrn Positive H (NEGATIVE) Urine Cocaine Screen Negative (NEGATIVE) U Marijuana (THC) Screen Positive H (NEGATIVE) 09/30/17 09/30/17 Range/Units 12:01 12:01 WBC (5.0-10.0) 10^3/uL RBC (4.2-5.4) 10^6/uL Hgb (12.0-16.0) g/dL Hct (37.0-47.0) % MCV (80-100) fL MCH (27.0-34.0) pg MCHC (33.0-35.0) g/dL Plt Count (150-450) 10^3/uL Neut % (Auto) (42.2-75.2) % Lymph % (Auto) (20.5-50.1) % [place] % (Auto) (2-8) % Eos % (Auto) (1.0-3.0) % Baso % (Auto) (0.0-1.0) % Sodium (135-145) mmol/L Potassium (3.6-5.0) mmol/L Chloride (101-111) mmol/L Carbon Dioxide (21.0-31.0) mmol/L Anion Gap BUN (7-18) mg/dL Creatinine (0.6-1.3) mg/dL Est Cr Clr Drug Dosing mL/min Estimated GFR (MDRD) BUN/Creatinine Ratio Glucose (74-105) mg/dL Calcium (8.4-10.2) mg/dl Total Bilirubin (0.2-1.0) mg/dL AST (10-42) IU/L ALT (10-60) IU/L Alkaline Phosphatase (42-121) IU/L Total Protein (6.7-8.2) g/dl Albumin (3.2-5.5) g/dl Globulin Albumin/Globulin Ratio Urine Color Yellow (YELLOW) Urine Appearance Clear (CLEAR) Urine pH 6.0 (5.0-9.0) Ur Specific [place] >= 1.030 (1.005-1.030) Urine Protein Negative (NEGATIVE) Urine Glucose (UA) Negative (NEGATIVE) Urine Ketones 40 H (NEGATIVE) Urine Occult Blood Negative (NEGATIVE) Urine Nitrite Negative (NEGATIVE) Urine Bilirubin Small H (NEGATIVE) Urine Urobilinogen 0.2 (0.2-1.0) mg/dL Ur Leukocyte Esterase Moderate H (NEGATIVE) Urine RBC 0-5 /HPF Urine WBC 40-50 H (0-5/HPF) /HPF Ur Epithelial Cells Many H /HPF Urine Bacteria Many H (0-FEW/HPF) /HPF Urine Mucus Few H /LPF Urine HCG, Qual Negative Urine Opiates Screen (NEGATIVE) Ur Oxycodone Screen (NEGATIVE) Urine Methadone Screen (NEGATIVE) Ur Barbiturates Screen (NEGATIVE) U Tricyclic Antidepress (NEGATIVE) Ur Phencyclidine Scrn (NEGATIVE) Ur Amphetamine Screen (NEGATIVE) U Methamphetamines Scrn (NEGATIVE) Urine MDMA Screen (NEGATIVE) U Benzodiazepines Scrn (NEGATIVE) Urine Cocaine Screen (NEGATIVE) U Marijuana (THC) Screen (NEGATIVE) Meds: Medications Discontinued Medications Generic Name Dose Route Start Last Admin Trade Name Niesha PRN Reason Stop Dose Admin Sodium Chloride 1,000 mls @ 999 mls/hr 09/30/17 15:10 Normal Saline IV 09/30/17 16:10 .BOLUS ONE Lactated Ringer's 1,000 mls @ 999 mls/hr 09/30/17 15:16 09/30/17 15:20 Ringers, Lactated IV 09/30/17 16:16 999 mls/hr .BOLUS ONE Administration Iopamidol 75 ml 09/30/17 12:38 09/30/17 13:42 Isovue-300 (61%) IVPUSH 09/30/17 12:39 75 ml ONETIME ONE Administration Sodium Chloride 10 ml 09/30/17 12:38 Saline Flush FLUSH ASDIRECTED PRN Keep Vein Open - Radiology Interpretation Free Text/Narrative:: CT Abdomen/Pelvis with contrast: Missing left kidney, possible left upper quadrant small bowel ileus. 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 She was unaware of this information prior. I explained the results of her CT and told her I would like her to have 1Liter of fluids to flush the contrast out and help with the ileus. She agreed to stay for IV fluids prior to being discharged. I did explain to her that I wanted her to follow up with her primary care provider for further evaluation. Departure - Departure Time of Disposition: 16:00 Disposition: Home, Self-Care 01 Clinical Impression: BV (bacterial vaginosis) UTI (urinary tract infection) Qualifiers: Urinary tract infection type: acute cystitis Hematuria presence: with hematuria Qualified Code(s): N30.01 - Acute cystitis with hematuria - Discharge Information Instructions: Constipation, Adult, [id number], Abdominal Pain, Adult, Easy-to -Read Forms: ED Department Discharge Additional Instructions: Avoid douching or wearing tight fitting clothing Use of condoms and spermicides can reduce the risk of getting Bacterial vaginosis Increase fluid intake RX: Pyridium, Bactrim, Metronidazole Follow up with your primary care facility next week Miralax or generic brand like..use as directed for a week to increase bowel movements. Drink lots of water. - My Orders Last 24 Hours: My Active Orders 09/30/17 12:38 Peripheral IV Care [RC] . DIRECTED Peripheral IV Insertion Adult [OM.PC] Stat - Assessment/Plan Last 24 Hours: My Active Orders 09/30/17 12:38 Peripheral IV Care [RC] . DIRECTED Peripheral IV Insertion Adult [OM.PC] Stat
[2017-09-30 12:19] LABS: CHLORIDE,CL 105 mmol/L (101-111); SODIUM,NA 136 mmol/L (135-145)
[2017-09-30] MEDS ORDERED: Iopamidol 612 MG/ML 75 ML Bottle IVPUSH ONE (12:38)
[2017-09-30] MEDS ORDERED: Sodium Chloride 0.9% 10 ML Syringe FLUSH PRN (12:38)
[2017-09-30] MEDS ORDERED: Furosemide 40 MG/4 ML VIAL IVPUSH ONE (13:10)
[2017-09-30] MEDS ORDERED: Sodium Chloride 0.9% 1,000 ML IV ONE (15:10)
[2017-09-30] MEDS ORDERED: Lactated Ringers 1,000 ML IV ONE (15:16)
[2017-09-30 16:53] VITALS: BP 120/68
== END 2017-09-30 16:46 | disposition home or self-care (01) ==
LOC: DL.ED 11:09
DX: N76.0 Acute vaginitis (principal); B96.89 Other specified bacterial agents as the cause of diseases classified elsewhere; N30.01 Acute cystitis with hematuria; F17.210 Nicotine dependence, cigarettes, uncomplicated
CPT/HCPCS: 36415; 74177; 80053; 80305; 81001; 81025; 85025; 96360; 99284; J7120; Q9967

== ENCOUNTER 2017-10-07 20:41 | Inpatient (IN) | payer BC, MEDICAID ==
[2017-10-07] MEDS ORDERED: Sodium Chloride 0.9% 1,000 ML IV ONE (21:02)
--- NOTE | 2017-10-07 21:02 | EDM.PDOC ---
ED HPI GENERAL MEDICAL PROBLEM - General Chief Complaint: Abdominal Pain Stated Complaint: STOMACH PAIN ALL DAY [id number] Time Seen by Provider: 10/07/17 20:59 Source of Information: Reports: Patient History Limitations: Reports: No Limitations - History of Present Illness INITIAL COMMENTS - FREE TEXT/NARRATIVE: abd pain all over all day. nauseous vomited x1 Right Upper Abdomen Pain Score (Numeric/FACES): 8 - Related Data Allergies Allergy/AdvReac Type Severity Reaction Status Date / Time No Known Allergies Allergy Verified 10/07/17 20:45 Home Meds: Home Meds . 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: Musculoskeletal History: Reports: None Neurological History: Reports: None Psychiatric History: Reports: None Endocrine/Metabolic History: Reports: None Hematologic History: Reports: None Immunologic History: Reports: None Oncologic (Cancer) History: Reports: None Dermatologic History: Reports: None - Infectious Disease History Infectious Disease History: Reports: Chicken Pox - Past Surgical History Head Surgeries/Procedures: Reports: None HEENT Surgical History: Reports: Oral Surgery Social & Family History - Family History Family Medical History: Noncontributory - Tobacco Use Smoking Status *Q: Current Every Day Smoker Years of Tobacco use: 4 Packs/Tins Daily: 0.5 Used Tobacco, but Quit: No Second Hand Smoke Exposure: No - Caffeine Use Caffeine Use: Reports: Coffee, Energy Drinks, Soda, Tea - Alcohol Use Days Per Week of Alcohol Use: 2 Number of Drinks Per Day: 6 Total Drinks Per Week: 12 - Recreational Drug Use Recreational Drug Use: Yes Drug Use in Last 12 Months: Yes Recreational Drug Type: Reports: Marijuana/Hashish, Methamphetamine Recreational Drug Use Frequency: Monthly - Living Situation & Occupation Living situation: Reports: with Family Occupation: Employed ED ROS GENERAL - Review of Systems Review Of Systems: ROS reveals no pertinent complaints other than HPI. ED EXAM, GI/ABD - Physical Exam Exam: See Below Exam Limited By: No Limitations General Appearance: Alert, WD/WN, Mild Distress, Other (crying) Ears: Hearing Grossly Normal Throat/Mouth: Normal Voice, No Airway Compromise Head: Atraumatic Neck: Non-Tender, Full Range of Motion Respiratory/Chest: No Respiratory Distress Cardiovascular: Regular Rate, Rhythm GI/Abdominal Exam: Guarding, Tender, Other (right side pain, hyper BS). No: Distended, Rigid, Rebound Neurological: Alert, Oriented, Normal Cognition, Normal Gait, No Motor/Sensory Deficits Psychiatric: Tearful Skin Exam: Warm, Dry, Normal Color Lymphatic: No Adenopathy Course - Vital Signs Last Recorded V/S: Last Vital Signs Temp 37.4 C 10/07/17 23:10 Pulse 98 10/07/17 23:10 Resp 16 10/07/17 23:10 BP 93/48 L 10/07/17 23:10 Pulse Ox 96 10/07/17 23:10 - Orders/Labs/Meds Orders: Active Orders 24 hr Category Date Time Status CULTURE BLOOD [BC] Stat Lab 10/07/17 21:05 Received CULTURE URINE [RM] Routine Lab 10/07/17 21:00 Received cefTRIAXone [Rocephin] Med 10/08/17 00:01 Once 1 gm IVPUSH ONETIME ONE Medication Orders Ceftriaxone Sodium (Rocephin) 1 gm IVPUSH ONETIME ONE Stop: 10/08/17 00:02 Labs: Laboratory Tests 10/07/17 10/07/17 10/07/17 Range/Units 21:00 21:00 21:00 WBC (5.0-10.0) 10^3/uL RBC (4.2-5.4) 10^6/uL Hgb (12.0-16.0) g/dL Hct (37.0-47.0) % MCV (80-100) fL MCH (27.0-34.0) pg MCHC (33.0-35.0) g/dL Plt Count (150-450) 10^3/uL Neut % (Auto) (42.2-75.2) % Lymph % (Auto) (20.5-50.1) % [place] % (Auto) (2-8) % Eos % (Auto) (1.0-3.0) % Baso % (Auto) (0.0-1.0) % Add Manual Diff Neutrophils % (Manual) (42-75) % Band Neutrophils % % Lymphocytes % (Manual) (20-50) % Atypical Lymphs % % Monocytes % (Manual) (2-8) % Eosinophils % (Manual) (1-3) % Basophils % (Manual) Platelet Estimate Sodium (135-145) mmol/L Potassium (3.6-5.0) mmol/L Chloride (101-111) mmol/L Carbon Dioxide (21.0-31.0) mmol/L Anion Gap BUN (7-18) mg/dL Creatinine (0.6-1.3) mg/dL Est Cr Clr Drug Dosing mL/min Estimated GFR (MDRD) BUN/Creatinine Ratio Glucose (74-105) mg/dL Lactic Acid (0.5-2.2) mmol/L Calcium (8.4-10.2) mg/dl Total Bilirubin (0.2-1.0) mg/dL AST (10-42) IU/L ALT (10-60) IU/L Alkaline Phosphatase (42-121) IU/L Total Protein (6.7-8.2) g/dl Albumin (3.2-5.5) g/dl Globulin Albumin/Globulin Ratio Amylase (28-100) U/L Lipase (22-51) U/L Urine Color Dark yellow (YELLOW) Urine Appearance Slightly cloudy (CLEAR) Urine pH 7.0 (5.0-9.0) Ur Specific [place] 1.020 (1.005-1.030) Urine Protein 100 H (NEGATIVE) Urine Glucose (UA) 100 H (NEGATIVE) Urine Ketones >=160 H (NEGATIVE) Urine Occult Blood Negative (NEGATIVE) Urine Nitrite Positive H (NEGATIVE) Urine Bilirubin Moderate H (NEGATIVE) Urine Urobilinogen 1.0 (0.2-1.0) mg/dL Ur Leukocyte Esterase Small H (NEGATIVE) Urine HCG, Qual Negative Urine Opiates Screen Negative (NEGATIVE) Ur Oxycodone Screen Negative (NEGATIVE) Urine Methadone Screen Negative (NEGATIVE) Ur Barbiturates Screen Negative (NEGATIVE) U Tricyclic Antidepress Negative (NEGATIVE) Ur Phencyclidine Scrn Negative (NEGATIVE) Ur Amphetamine Screen Positive H (NEGATIVE) U Methamphetamines Scrn Positive H (NEGATIVE) Urine MDMA Screen Positive H (NEGATIVE) U Benzodiazepines Scrn Negative (NEGATIVE) Urine Cocaine Screen Negative (NEGATIVE) U Marijuana (THC) Screen Positive H (NEGATIVE) 10/07/17 10/07/17 10/07/17 Range/Units 21:05 21:05 21:05 WBC 26.6 H* (5.0-10.0) 10^3/uL RBC 4.75 (4.2-5.4) 10^6/uL Hgb 13.7 (12.0-16.0) g/dL Hct 40.2 (37.0-47.0) % MCV 84.6 (80-100) fL MCH 28.8 (27.0-34.0) pg MCHC 34.1 (33.0-35.0) g/dL Plt Count 530 H D (150-450) 10^3/uL Neut % (Auto) 88.5 H (42.2-75.2) % Lymph % (Auto) 5.1 L (20.5-50.1) % [place] % (Auto) 6.2 (2-8) % Eos % (Auto) 0.1 L (1.0-3.0) % Baso % (Auto) 0.1 (0.0-1.0) % Add Manual Diff Yes Neutrophils % (Manual) 79 H (42-75) % Band Neutrophils % 11 % Lymphocytes % (Manual) 3 L (20-50) % Atypical Lymphs % 0 % Monocytes % (Manual) 6 (2-8) % Eosinophils % (Manual) 1 (1-3) % Basophils % (Manual) 0 Platelet Estimate Increased Sodium 132 L (135-145) mmol/L Potassium 4.0 (3.6-5.0) mmol/L Chloride 100 L (101-111) mmol/L Carbon Dioxide 23.0 (21.0-31.0) mmol/L Anion Gap 13.0 BUN 11 (7-18) mg/dL Creatinine 0.7 (0.6-1.3) mg/dL Est Cr Clr Drug Dosing 103.81 mL/min Estimated GFR (MDRD) > 60 BUN/Creatinine Ratio 15.71 Glucose 94 (74-105) mg/dL Lactic Acid 0.7 (0.5-2.2) mmol/L Calcium 8.9 (8.4-10.2) mg/dl Total Bilirubin 0.7 (0.2-1.0) mg/dL AST 17 (10-42) IU/L ALT 12 (10-60) IU/L Alkaline Phosphatase 77 (42-121) IU/L Total Protein 7.9 (6.7-8.2) g/dl Albumin 3.9 (3.2-5.5) g/dl Globulin 4.0 Albumin/Globulin Ratio 0.98 Amylase 35 (28-100) U/L Lipase 17 L (22-51) U/L Urine Color (YELLOW) Urine Appearance (CLEAR) Urine pH (5.0-9.0) Ur Specific [place] (1.005-1.030) Urine Protein (NEGATIVE) Urine Glucose (UA) (NEGATIVE) Urine Ketones (NEGATIVE) Urine Occult Blood (NEGATIVE) Urine Nitrite (NEGATIVE) Urine Bilirubin (NEGATIVE) Urine Urobilinogen (0.2-1.0) mg/dL Ur Leukocyte Esterase (NEGATIVE) Urine HCG, Qual Urine Opiates Screen (NEGATIVE) Ur Oxycodone Screen (NEGATIVE) Urine Methadone Screen (NEGATIVE) Ur Barbiturates Screen (NEGATIVE) U Tricyclic Antidepress (NEGATIVE) Ur Phencyclidine Scrn (NEGATIVE) Ur Amphetamine Screen (NEGATIVE) U Methamphetamines Scrn (NEGATIVE) Urine MDMA Screen (NEGATIVE) U Benzodiazepines Scrn (NEGATIVE) Urine Cocaine Screen (NEGATIVE) U Marijuana (THC) Screen (NEGATIVE) 10/07/17 Range/Units 23:05 WBC 23.3 H (5.0-10.0) 10^3/uL RBC 4.11 L (4.2-5.4) 10^6/uL Hgb 11.8 L D (12.0-16.0) g/dL Hct 35.5 L (37.0-47.0) % MCV 86.4 (80-100) fL MCH 28.7 (27.0-34.0) pg MCHC 33.2 (33.0-35.0) g/dL Plt Count 452 H D (150-450) 10^3/uL Neut % (Auto) (42.2-75.2) % Lymph % (Auto) (20.5-50.1) % [place] % (Auto) (2-8) % Eos % (Auto) (1.0-3.0) % Baso % (Auto) (0.0-1.0) % Add Manual Diff Neutrophils % (Manual) (42-75) % Band Neutrophils % % Lymphocytes % (Manual) (20-50) % Atypical Lymphs % % Monocytes % (Manual) (2-8) % Eosinophils % (Manual) (1-3) % Basophils % (Manual) Platelet Estimate Sodium (135-145) mmol/L Potassium (3.6-5.0) mmol/L Chloride (101-111) mmol/L Carbon Dioxide (21.0-31.0) mmol/L Anion Gap BUN (7-18) mg/dL Creatinine (0.6-1.3) mg/dL Est Cr Clr Drug Dosing mL/min Estimated GFR (MDRD) BUN/Creatinine Ratio Glucose (74-105) mg/dL Lactic Acid (0.5-2.2) mmol/L Calcium (8.4-10.2) mg/dl Total Bilirubin (0.2-1.0) mg/dL AST (10-42) IU/L ALT (10-60) IU/L Alkaline Phosphatase (42-121) IU/L Total Protein (6.7-8.2) g/dl Albumin (3.2-5.5) g/dl Globulin Albumin/Globulin Ratio Amylase (28-100) U/L Lipase (22-51) U/L Urine Color (YELLOW) Urine Appearance (CLEAR) Urine pH (5.0-9.0) Ur Specific [place] (1.005-1.030) Urine Protein (NEGATIVE) Urine Glucose (UA) (NEGATIVE) Urine Ketones (NEGATIVE) Urine Occult Blood (NEGATIVE) Urine Nitrite (NEGATIVE) Urine Bilirubin (NEGATIVE) Urine Urobilinogen (0.2-1.0) mg/dL Ur Leukocyte Esterase (NEGATIVE) Urine HCG, Qual Urine Opiates Screen (NEGATIVE) Ur Oxycodone Screen (NEGATIVE) Urine Methadone Screen (NEGATIVE) Ur Barbiturates Screen (NEGATIVE) U Tricyclic Antidepress (NEGATIVE) Ur Phencyclidine Scrn (NEGATIVE) Ur Amphetamine Screen (NEGATIVE) U Methamphetamines Scrn (NEGATIVE) Urine MDMA Screen (NEGATIVE) U Benzodiazepines Scrn (NEGATIVE) Urine Cocaine Screen (NEGATIVE) U Marijuana (THC) Screen (NEGATIVE) Meds: Medications Generic Name Dose Route Start Last Admin Trade Name Freq PRN Reason Stop Dose Admin Ceftriaxone Sodium 1 gm 10/08/17 00:01 Rocephin IVPUSH 10/08/17 00:02 ONETIME ONE Discontinued Medications Generic Name Dose Route Start Last Admin Trade Name Freq PRN Reason Stop Dose Admin Sodium Chloride 1,000 mls @ 500 mls/hr 10/07/17 21:02 10/07/17 21:10 Normal Saline IV 10/07/17 23:01 500 mls/hr .BOLUS ONE Administration Iopamidol 75 ml 10/07/17 21:56 10/07/17 22:08 Isovue-300 (61%) IVPUSH 10/07/17 21:57 75 ml ONETIME ONE Administration Ondansetron HCl 4 mg 10/07/17 21:58 10/07/17 22:02 Zofran IV 10/07/17 21:59 4 mg ONETIME ONE Administration - Re-Assessments/Exams Free Text/Narrative Re-Assessment/Exam: 10/08/17 00:[address] Campa who kindly admitted pt. Departure - Departure Time of Disposition: 00:04 Disposition: Admitted As Inpatient 66 Condition: Good Clinical Impression: Pyelonephritis UTI (urinary tract infection) Qualifiers: Urinary tract infection type: acute cystitis Hematuria presence: with hematuria Qualified Code(s): N30.01 - Acute cystitis with hematuria - Discharge Information Forms: ED Department Discharge - My Orders Last 24 Hours: My Active Orders 10/07/17 21:00 CULTURE URINE [RM] Routine 10/07/17 21:05 CULTURE BLOOD [BC] Stat 10/08/17 00:01 cefTRIAXone [Rocephin] 1 gm IVPUSH ONETIME ONE - Assessment/Plan Last 24 Hours: My Active Orders 10/07/17 21:00 CULTURE URINE [RM] Routine 10/07/17 21:05 CULTURE BLOOD [BC] Stat 10/08/17 00:01 cefTRIAXone [Rocephin] 1 gm IVPUSH ONETIME ONE
[2017-10-07 21:34] LABS: CHLORIDE,CL 100 mmol/L (101-111); SODIUM,NA 132 mmol/L (135-145)
[2017-10-07] MEDS ORDERED: Iopamidol 612 MG/ML 75 ML Bottle IVPUSH ONE (21:56)
[2017-10-07] MEDS ORDERED: Ondansetron 4 MG/2 ML SDV IV ONE (21:58)
[2017-10-08] MEDS ORDERED: cefTRIAXone 1 GM Vial IVPUSH ONE (00:01)
[2017-10-08] MEDS ORDERED: Polyethylene Glycol 3350 Powder 17 GM Packet PO PRN (01:05)
[2017-10-08] MEDS ORDERED: Acetaminophen 325 MG Tab PO PRN (01:05)
[2017-10-08] MEDS ORDERED: Promethazine 25 MG/ML SDV IM PRN (01:05)
[2017-10-08] MEDS ORDERED: Zolpidem 5 MG Tab PO PRN (01:05)
[2017-10-08] MEDS ORDERED: Ondansetron 4 MG/2 ML SDV IVPUSH PRN (01:05)
[2017-10-08] MEDS ORDERED: Sodium Chloride 0.9% 1,000 ML IV SCH (01:15)
--- NOTE | 2017-10-08 01:42 | PCM.HP ---
H&P History of Present Illness - General Date of Service: 10/08/17 Admit Problem/Dx: Admission Diagnosis/Problem Admission Diagnosis/Problem Sepsis Source of Information: Patient - History of Present Illness Initial Comments - Free Text/Narative: 22-year-old female with past medical history of drug abuse, recurrent UTI, absence of kidney on the left side presented to the emergency room for having fever, chills, nausea, vomiting, lower abdominal pain, right flank pain started 3 AM yesterday on 10/07/17. Prior to that patient was having urinary dysuria and lower abdomen pressure for 10 days. One week ago she was started on metronidazole and Bactrim for UTI. Patient admitted using IV methamphetamine yesterday. Also she admits using marijuana. Patient denies headache, upper respiratory symptoms, chest pain, shortness breath, palpitation, diarrhea, blood in the urine, versus edema, any other symptoms or concern. Patient has Mirena device placed last January. and she doesn't think she is . Patient denies history of kidney infection in the past. She denies any other chronic disease. She denies taking prescribed or [id number] medications and regular basis. In emergency room patient laboratory data reported WBC 23.3 with left shift. Sodium 132. Potassium 4.0. Creatinine 0.7. B UN 11. Lipase 17. Lactic acid 0.7. AST 17. ALT 12. Alk phosphatase 77. Urinalysis reported positive nitrate, small leukocyte esterase, negative hCG. There was no enough urine to do microscope urinalysis. Urine toxicology reported positive amphetamine, methamphetamine, MDMA, marijuana. she declined using MDMA. CT abdomen reported no acute findings. Right Upper Abdomen Pain Score (Numeric/FACES): 8 - Related Data Allergies/Adverse Reactions: Allergies Allergy/AdvReac Type Severity Reaction Status Date / Time No Known Allergies Allergy Verified 10/07/17 20:45 Home Medications: Home Meds . [No Known Home Meds] 08/19/17 [History] Past Medical History - Past Health History Medical/Surgical History: Denies Medical/Surgical History HEENT History: Reports: Impaired Vision Cardiovascular History: Reports: None Respiratory History: Reports: None Gastrointestinal History: Reports: None Genitourinary History: Reports: None, UTI, Recurrent [employer]ICS History: Reports: Musculoskeletal History: Reports: None Neurological History: Reports: None Psychiatric History: Reports: None Endocrine/Metabolic History: Reports: None Hematologic History: Reports: None Immunologic History: Reports: None Oncologic (Cancer) History: Reports: None Dermatologic History: Reports: None - Infectious Disease History Infectious Disease History: Reports: C-Difficile - Past Surgical History Head Surgeries/Procedures: Reports: None HEENT Surgical History: Reports: Oral Surgery Cardiovascular Surgical History: Reports: None Social & Family History - Family History Family Medical History: Noncontributory Endocrine/Metabolic: Reports: Diabetes, type II - Tobacco Use Smoking Status *Q: Current Every Day Smoker Years of Tobacco use: 4 Packs/Tins Daily: 0.5 Used Tobacco, but Quit: No Second Hand Smoke Exposure: No - Caffeine Use Caffeine Use: Reports: Coffee, Energy Drinks, Soda - Alcohol Use Days Per Week of Alcohol Use: 2 Number of Drinks Per Day: 6 Total Drinks Per Week: 12 - Recreational Drug Use Recreational Drug Use: Yes Drug Use in Last 12 Months: Yes Recreational Drug Type: Reports: Marijuana/Hashish, Methamphetamine Recreational Drug Use Frequency: Daily - Living Situation & Occupation Living situation: Reports: with Family Occupation: Employed H&P Review of Systems - Review of Systems: Review Of Systems: ROS reveals no pertinent complaints other than HPI. Exam - Exam Exam: See Below - Vital Signs Vital Signs: Last Vital Signs Temp 37.1 C 10/08/17 00:42 Pulse 104 H 10/08/17 00:42 Resp 24 H 10/08/17 00:42 BP 97/49 L 10/08/17 00:42 Pulse Ox 97 10/08/17 00:42 Weight: 53.705 kg - Exam General: Alert, Oriented, Cooperative, Mild Distress. No: Severe Distress, Sedated, Lethargic, Obtunded HEENT: Conjunctiva Clear, EACs Clear, EOMI, Hearing Intact, Mucosa Moist & [place] , Nares Patent, Normal Nasal Septum, Posterior Pharynx Clear, Pupils Equal, Pupils Reactive, TMs Clear Neck: Supple, Trachea Midline Lungs: Clear to Auscultation, Normal Respiratory Effort Cardiovascular: Regular Rate, Regular Rhythm, Normal S1, Normal S2. No: Systolic Murmur, Diastolic Murmur, Rubs, Gallop/S3, Gallop/S4 GI/Abdominal Exam: Normal Bowel Sounds, Soft, No Organomegaly, No Distention, No Abnormal Bruit, No Mass, Pelvis Stable, Tender (Lower abdomen) (Female) Exam: Deferred Rectal (Female) Exam: Deferred Back Exam: Normal Inspection, Full Range of Motion, CVA Tenderness (R). No: CVA Tenderness (L) Extremities: Normal Inspection, Normal Range of Motion, Non-Tender, No Pedal Edema, Normal Capillary Refill Peripheral Pulses: 2+: Radial (L), Radial (R) Skin: Warm, Dry, Intact Neurological: Cranial Nerves Intact, Strength Equal Bilateral, Sensation Intact. No: Focal Deficit Neuro Extensive - Mental Status: Alert, Oriented x3 Neuro Extensive - Motor, Sensory, Reflexes: CN II-XII Intact Psychiatric: Alert, Normal Affect, Normal Mood. No: Anxious, Depressed, Agitated, Suicidal Ideation, Homicidal Ideation, Hallucinations, Withdrawal Symptoms - Patient Data Result Diagrams: 10/07/17 23:05 10/07/17 21:05 *Q Meaningful Use (ADM) - VTE *Q VTE Criteria *Q: - Stroke *Q Stroke Criteria *Q: - AMI *Q AMI Criteria *Q: - Problem List (1) Nausea and vomiting SNOMED Code(s): 75862496 ICD Code: R11.2 - NAUSEA WITH VOMITING, UNSPECIFIED Status: Acute Current Visit: Yes (2) Sepsis SNOMED Code(s): 22035641 ICD Code: A41.9 - SEPSIS, UNSPECIFIED ORGANISM Status: Acute Priority: High Current Visit: Yes (3) Hyponatremia SNOMED Code(s): 97768852 ICD Code: E87.1 - HYPO-OSMOLALITY AND HYPONATREMIA Status: Acute Priority : Low Current Visit: Yes (4) Pyelonephritis SNOMED Code(s): 71017135 ICD Code: N12 - TUBULO-INTERSTITIAL NEPHRITIS, NOT SPCF ACUTE OR CHRONIC Status: Acute Priority: High Current Visit: Yes (5) Methamphetamine abuse SNOMED Code(s): 657543163 ICD Code: F15.10 - OTHER STIMULANT ABUSE, UNCOMPLICATED Status: Chronic Current Visit: No (6) IVDU (intravenous drug user) SNOMED Code(s): 155181456 ICD Code: F19.90 - OTHER PSYCHOACTIVE SUBSTANCE USE, UNSPECIFIED, UNCOMPLICATED Status: Acute Current Visit: No Problem List Initiated/Reviewed/Updated: Yes Orders Last 24hrs: Active Orders 24 hr Category Date Time Status C-REACTIVE PROTEIN [CHEM] Routine Lab 10/07/17 21:10 Received CULTURE BLOOD [] Routine Lab 10/07/17 21:10 Results Piperacillin/Tazobactam [Zosyn] 3.375 gm Med 10/08/17 02:00 Active Sodium Chloride 0.9% [Normal Saline] 100 ml IV Q6H Medication Orders Acetaminophen (Tylenol) 650 mg PO Q4H PRN PRN Reason: Pain (Mild 1-3)/fever Enoxaparin Sodium (Lovenox) 40 mg SUBCUT DAILY [facility] Sodium Chloride (Normal Saline) 1,000 mls @ 500 mls/hr IV ASDIRECTED TAIWO Stop: 10/08/17 03:14 Sodium Chloride (Normal Saline) 1,000 mls @ 75 mls/hr IV ASDIRECTED TAIWO Vancomycin HCl 1.25 gm/ Sodium (Chloride) 250 mls @ 167 mls/hr IV ONETIME ONE Stop: 10/08/17 02:32 Piperacillin Sod/Tazobactam (Sod 3.375 gm/ Sodium Chloride) 100 mls @ 200 mls/ hr IV Q6H [facility] Morphine Sulfate (Morphine) 2 mg IVPUSH Q2H PRN PRN Reason: Pain (severe 7-10) Ondansetron HCl (Zofran) 4 mg IVPUSH Q6H PRN PRN Reason: Nausea/Vomiting Polyethylene Glycol (Miralax) 17 gm PO DAILY PRN PRN Reason: Constipation Promethazine HCl (Phenergan) 12.5 mg IM Q6H PRN PRN Reason: Nausea/Vomiting Zolpidem Tartrate (Ambien) 5 mg PO BEDTIME PRN PRN Reason: Sleep Assessment/Plan Comment:: Impression 22-year-old female with the past medical history of IV drug use and recurrent UTI presented with pyelonephritis and sepsis/urosepsis. Plan Patient received 1 L of normal saline as a bolus in the emergency room. She was also received 1 dose of Rocephin -Give him another 1 L of normal saline at 500 mL per hour, then normal saline at 75 mL per hour -Start Zosyn and vancomycin -Awaiting urine and blood culture results -Morphine for pain -Zofran and promethazine for nausea as needed -Patient was counseled not to use IV or any other kind of illicit drugs. She was advised to seek outpatient or inpatient counseling and speak to her primary care provider about that. Lovenox for DVT prophylaxis Full code Plan of care was discussed with patient and she verbalized understanding
[2017-10-08] MEDS: Morphine 2 MG/ML Syringe IVPUSH PRN ×3 (01:56→13:24)
[2017-10-08] MEDS: Piperacillin/Tazobactam 3.375 GM in Sodium Chloride 0.9% 100 ML IV SCH ×4 (02:12→21:10)
[2017-10-08] MEDS: Sodium Chloride 0.9% 1,000 ML IV SCH (04:44)
[2017-10-08 06:46] LABS: CHLORIDE,CL 105 mmol/L (101-111); SODIUM,NA 134 mmol/L (135-145)
[2017-10-08] MEDS ORDERED: Magnesium Sulfate/Water 2 GM in Premix Bag 1 BAG IV ONE (09:17)
[2017-10-08] MEDS: Enoxaparin 40 MG/0.4 ML Syringe SUBCUT SCH (11:28)
--- NOTE | 2017-10-08 11:55 | PCM.SN ---
- Free Text/Narrative Note: Kevin, evaluated, examined the patient this morning and she stated that she feels better and she looked better as well. She has no new complaint. She did not have left or right flank tenderness. She is still complaining of lower abdomen pressure and dysuria. She states that she is urinating better. She denies fever. Her magnesium is 1.6. I will continue with the same plan and add magnesium sulfate 4 g IV
[2017-10-08] MEDS: Acetaminophen/oxyCODONE 325-5 MG Tab PO PRN (14:28)
[2017-10-09] MEDS ORDERED: Sodium Chloride 0.9% 10 ML Syringe FLUSH PRN (01:55)
[2017-10-09] MEDS: Sodium Chloride 0.9% 1,000 ML IV SCH ×2 (02:14→23:09)
[2017-10-09] MEDS: Piperacillin/Tazobactam 3.375 GM in Sodium Chloride 0.9% 100 ML IV SCH ×4 (02:37→20:09)
[2017-10-09] MEDS: Acetaminophen/oxyCODONE 325-5 MG Tab PO PRN ×3 (04:10→19:59)
--- NOTE | 2017-10-09 09:20 | PCM.PN ---
- General Info Date of Service: 10/09/17 Admission Dx/Problem (Free Text): Admission Diagnosis/Problem Admission Diagnosis/Problem Sepsis Subjective Update: Patient stated that she is feeling better. Her pain improved but she is still complaining of lower abdomen pressure and pain with urination. She does not have right flank pain since yesterday. She still feeling the chills and having some sweats. She admitted having vaginal discharge. She denies nausea and vomiting, diarrhea,, rash, any new symptoms - Patient Data Vitals - Most Recent: Last Vital Signs Temp 36.6 C 10/09/17 07:34 Pulse 79 10/09/17 07:34 Resp 20 10/09/17 07:34 BP 106/54 L 10/09/17 07:34 Pulse Ox 100 10/09/17 07:34 Weight - Most Recent: 53.705 kg I&O - Last 24 Hours: Intake & Output 10/08/17 10/09/17 10/09/17 22:59 06:59 14:59 Intake Total 2120 1034 105 Output Total 900 700 Balance 1220 1034 -595 Lab Results Last 24 Hours: Laboratory Results - last 24 hr 10/09/17 Range/Units 08:25 WBC 19.5 H (5.0-10.0) 10^3/uL RBC 4.27 (4.2-5.4) 10^6/uL Hgb 12.2 (12.0-16.0) g/dL Hct 37.2 (37.0-47.0) % MCV 87.1 (80-100) fL MCH 28.6 (27.0-34.0) pg MCHC 32.8 L (33.0-35.0) g/dL Plt Count 453 H (150-450) 10^3/uL Neut % (Auto) 80.6 H (42.2-75.2) % Lymph % (Auto) 10.1 L (20.5-50.1) % [place] % (Auto) 8.5 H (2-8) % Eos % (Auto) 0.6 L (1.0-3.0) % Baso % (Auto) 0.2 (0.0-1.0) % Med Orders - Current: Current Medications Acetaminophen (Tylenol) 650 mg PO Q4H PRN PRN Reason: Pain (Mild 1-3)/fever Enoxaparin Sodium (Lovenox) 40 mg SUBCUT DAILY [facility] Last Admin: 10/08/17 11:28 Dose: 40 mg Sodium Chloride (Normal Saline) 1,000 mls @ 75 mls/hr IV ASDIRECTED [facility] Last Admin: 10/09/17 02:14 Dose: 75 mls/hr Piperacillin Sod/Tazobactam (Sod 3.375 gm/ Sodium Chloride) 100 mls @ 200 mls/ hr IV Q6H [facility] Last Infusion: 10/09/17 08:34 Dose: Infused Vancomycin HCl 1 gm/ Sodium (Chloride) 250 mls @ 166.667 mls/hr IV Q8H [facility] Last Admin: 10/09/17 02:38 Dose: 166.667 mls/hr Morphine Sulfate (Morphine) 2 mg IVPUSH Q2H PRN PRN Reason: Pain (severe 7-10) Last Admin: 10/08/17 13:24 Dose: 2 mg Ondansetron HCl (Zofran) 4 mg IVPUSH Q6H PRN PRN Reason: Nausea/Vomiting Last Admin: 10/08/17 01:56 Dose: 4 mg Oxycodone/Acetaminophen (Percocet 325-5 Mg) 1 tab PO Q4H PRN PRN Reason: Nasal Dryness Last Admin: 10/09/17 04:10 Dose: 1 tab Polyethylene Glycol (Miralax) 17 gm PO DAILY PRN PRN Reason: Constipation Promethazine HCl (Phenergan) 12.5 mg IM Q6H PRN PRN Reason: Nausea/Vomiting Last Admin: 10/08/17 04:02 Dose: 12.5 mg Sodium Chloride (Saline Flush) 10 ml FLUSH ASDIRECTED PRN PRN Reason: Keep Vein Open Last Admin: 10/09/17 07:51 Dose: 10 ml Vancomycin HCl (Pharmacy To Dose - Vancomycin) 1 dose .XX ASDIRECTED [facility] Zolpidem Tartrate (Ambien) 5 mg PO BEDTIME PRN PRN Reason: Sleep Discontinued Medications Ceftriaxone Sodium (Rocephin) 1 gm IVPUSH ONETIME ONE Stop: 10/08/17 00:02 Last Admin: 10/08/17 00:07 Dose: 1 gm Sodium Chloride (Normal Saline) 1,000 mls @ 500 mls/hr IV .BOLUS ONE Stop: 10/07/17 23:01 Last Admin: 10/07/17 21:10 Dose: 500 mls/hr Sodium Chloride (Normal Saline) 1,000 mls @ 500 mls/hr IV ASDIRECTED TAIOW Stop: 10/08/17 03:14 Last Infusion: 10/08/17 04:41 Dose: 500 mls/hr Vancomycin HCl 1.25 gm/ Sodium (Chloride) 250 mls @ 167 mls/hr IV ONETIME ONE Stop: 10/08/17 02:32 Last Admin: 10/08/17 02:23 Dose: Not Given Vancomycin HCl 1 gm/ Sodium (Chloride) 250 mls @ 166.667 mls/hr IV ONETIME ONE Stop: 10/08/17 03:14 Last Admin: 10/08/17 02:14 Dose: 150 mls/hr Vancomycin HCl 1 gm/ Sodium (Chloride) 250 mls @ 166.667 mls/hr IV Q8H [facility] Magnesium Sulfate 2 gm/ Premix 50 mls @ 25 mls/hr IV ONETIME ONE Stop: 10/08/17 11:16 Last Admin: 10/08/17 13:37 Dose: 25 mls/hr Iopamidol (Isovue-300 (61%)) 75 ml IVPUSH ONETIME ONE Stop: 10/07/17 21:57 Last Admin: 10/07/17 22:08 Dose: 75 ml Ondansetron HCl (Zofran) 4 mg IV ONETIME ONE Stop: 10/07/17 21:59 Last Admin: 10/07/17 22:02 Dose: 4 mg - Exam General: Alert, Oriented, Cooperative, No Acute Distress. No: Mild Distress, Moderate Distress, Severe Distress, Sedated, Lethargic, Obtunded HEENT: Pupils Equal, Pupils Reactive, EOMI, Mucous Membr. Moist/[place] Neck: Supple, Trachea Midline, No JVD Lungs: Clear to Auscultation, Normal Respiratory Effort Cardiovascular: Regular Rate, Regular Rhythm GI/Abdominal Exam: Normal Bowel Sounds, Soft, No Organomegaly, No Distention, No Abnormal Bruit, Tender (Lower abdomen area). No: Distended, Guarding, Rigid , Rebound (Female) Exam: Deferred Back Exam: Normal Inspection, Full Range of Motion. No: CVA Tenderness (L), CVA Tenderness (R) Extremities: Normal Inspection, Normal Range of Motion, Non-Tender, No Pedal Edema, Normal Capillary Refill Skin: Dry, Intact Neurological: No New Focal Deficit Psy/Mental Status: Alert, Normal Affect, Normal Mood - Problem List & Annotations (1) Nausea and vomiting SNOMED Code(s): 69599376 Code(s): R11.2 - NAUSEA WITH VOMITING, UNSPECIFIED Status: Acute Current Visit: Yes (2) Sepsis SNOMED Code(s): 92743069 Code(s): A41.9 - SEPSIS, UNSPECIFIED ORGANISM Status: Acute Priority: High Current Visit: Yes (3) Hyponatremia SNOMED Code(s): 23134679 Code(s): E87.1 - HYPO-OSMOLALITY AND HYPONATREMIA Status: Acute Priority : Low Current Visit: Yes (4) Pyelonephritis SNOMED Code(s): 49397834 Code(s): N12 - TUBULO-INTERSTITIAL NEPHRITIS, NOT SPCF ACUTE OR CHRONIC Status: Acute Priority: High Current Visit: Yes (5) Methamphetamine abuse SNOMED Code(s): 048214983 Code(s): F15.10 - OTHER STIMULANT ABUSE, UNCOMPLICATED Status: Chronic Current Visit: No (6) IVDU (intravenous drug user) SNOMED Code(s): 203779526 Code(s): F19.90 - OTHER PSYCHOACTIVE SUBSTANCE USE, UNSPECIFIED, UNCOMPLICATED Status: Acute Current Visit: No - Problem List Review Problem List Initiated/Reviewed/Updated: Yes - My Orders Last 24 Hours: My Active Orders 10/08/17 09:00 Vancomycin 1 gm Sodium Chloride 0.9% [Normal Saline] 250 ml IV Q8H 10/08/17 13:49 Acetaminophen/oxyCODONE [Percocet 325-5 MG] 1 tab PO Q4H PRN 10/09/17 01:55 Peripheral IV Care [RC] . DIRECTED Sodium Chloride 0.9% [Saline Flush] 10 ml FLUSH ASDIRECTED PRN Peripheral IV Insertion Adult [OM.PC] Routine 10/09/17 08:25 BASIC METABOLIC PANEL,BMP [CHEM] AM - Plan Plan:: Impression 22-year-old female with the past medical history of IV drug use and recurrent UTI presented with clinical picture of pyelonephritis and sepsis/ urosepsis. Her urine culture came back with the multiple organism. Patient admitted having vaginal discharge. Plan Patient received 1 L of normal saline as a bolus in the emergency room. She was also received 1 dose of Rocephin. Then she received another 1 L of normal saline at 500 mL per hour -normal saline at 75 mL per hour -Continue Zosyn and vancomycin -Awaiting final blood culture results -I consulted Dr. Silveira for pelvic exam. She kindly accepted the consult she is planning to see the patient over lunch today. -Morphine and Percocet for pain as needed -Zofran and promethazine for nausea as needed -Patient was counseled not to use IV or any other kind of illicit drugs. She was advised to seek outpatient or inpatient counseling and speak to her primary care provider about that. Lovenox for DVT prophylaxis Full code Plan of care was discussed with patient and she verbalized understanding
[2017-10-09 09:23] LABS: CHLORIDE,CL 103 mmol/L (101-111); SODIUM,NA 136 mmol/L (135-145)
[2017-10-09] MEDS: Enoxaparin 40 MG/0.4 ML Syringe SUBCUT SCH (09:55)
--- NOTE | 2017-10-09 12:41 | PCM.CONS ---
H&P History of Present Illness - General Date of Service: 10/09/17 Admit Problem/Dx: Admission Diagnosis/Problem Admission Diagnosis/Problem Sepsis Source of Information: Patient History Limitations: Reports: No Limitations - History of Present Illness Initial Comments - Free Text/Narative: 22-year-old female presented to the ED on 10/07/17 with abdominal pain, back pain and dysuria. She also had low grade fevers. Due to significant discomfort and abnormal urinalysis, patient was admitted for probably pyelonephritis. Patient had a negative test and a positive drug screen. Her WBC count was also significantly elevated. Patient's blood and urine cultures have remained negative but she continues to have significant lower abdominal pain. Her Tmax was 100.1. She is eating and drinking. She has difficulty ambulating due to the pain. Patient had an IUD placed on 02/23/2017 at [facility]. She denies any concern for STDs but does admit to unprotected intercourse with her boyfriend over the past month. A review of patient's clinic Epic chart reveals that she did have a positive gonorrhea and chlamydia infection on 08/18/17. It appears that patient was not able to be contacted regarding these results. I did not find any evidence of further testing or treatment in the ED or in the clinic. Patient underwent CT scan which showed a possible ruptured cyst on the right. Right Upper Abdomen Pain Score (Numeric/FACES): 8 - Related Data Allergies/Adverse Reactions: Allergies Allergy/AdvReac Type Severity Reaction Status Date / Time No Known Allergies Allergy Verified 10/07/17 20:45 Home Medications: Home Meds . [No Known Home Meds] 08/19/17 [History] Past Medical History - Past Health History Medical/Surgical History: Denies Medical/Surgical History HEENT History: Reports: Impaired Vision Cardiovascular History: Reports: None Respiratory History: Reports: None Gastrointestinal History: Reports: None Genitourinary History: Reports: None, UTI, Recurrent [employer] History: Reports: Musculoskeletal History: Reports: None Neurological History: Reports: None Psychiatric History: Reports: None Endocrine/Metabolic History: Reports: None Hematologic History: Reports: None Immunologic History: Reports: None Oncologic (Cancer) History: Reports: None Dermatologic History: Reports: None - Infectious Disease History Infectious Disease History: Reports: C-Difficile - Past Surgical History Head Surgeries/Procedures: Reports: None HEENT Surgical History: Reports: Oral Surgery Cardiovascular Surgical History: Reports: None Social & Family History - Family History Family Medical History: Noncontributory Endocrine/Metabolic: Reports: Diabetes, type II - Tobacco Use Smoking Status *Q: Current Every Day Smoker Years of Tobacco use: 4 Packs/Tins Daily: 0.5 Used Tobacco, but Quit: No Second Hand Smoke Exposure: No - Caffeine Use Caffeine Use: Reports: Coffee, Energy Drinks, Soda - Alcohol Use Days Per Week of Alcohol Use: 2 Number of Drinks Per Day: 6 Total Drinks Per Week: 12 - Recreational Drug Use Recreational Drug Use: Yes Drug Use in Last 12 Months: Yes Recreational Drug Type: Reports: Marijuana/Hashish, Methamphetamine Recreational Drug Use Frequency: Daily - Living Situation & Occupation Living situation: Reports: with Family Occupation: Employed H&P Review of Systems - Review of Systems: Review Of Systems: See Below General: Reports: Weakness, Fatigue HEENT: Reports: No Symptoms Pulmonary: Reports: No Symptoms Cardiovascular: Reports: No Symptoms Gastrointestinal: Reports: Abdominal Pain, Decreased Appetite Genitourinary: Reports: Dysuria, Pain. Denies: Flank Pain Musculoskeletal: Reports: No Symptoms Skin: Reports: No Symptoms Psychiatric: Reports: No Symptoms Exam - Exam Exam: See Below - Vital Signs Vital Signs: Last Vital Signs Temp 37.2 C 10/09/17 11:00 Pulse 87 10/09/17 11:00 Resp 20 10/09/17 11:00 BP 102/50 L 10/09/17 11:00 Pulse Ox 100 10/09/17 11:00 Weight: 53.705 kg - Exam General: Alert, Oriented, Mild Distress GI/Abdominal Exam: Soft, Guarding, Tender (Suprapubic and RLQ) (Female) Exam: Normal External Exam, Normal Speculum Exam, Cervical Discharge (Clear), Cervix Motion Tenderness. No: Adnexal Tenderness, Enlarged Uterus, Vaginal Bleeding Skin: Warm, Dry, Intact - Patient Data Lab Results Last 24 hrs: Laboratory Results - last 24 hr 10/09/17 10/09/17 10/09/17 Range/Units 08:25 08:25 08:25 WBC 19.5 H (5.0-10.0) 10^3/uL RBC 4.27 (4.2-5.4) 10^6/uL Hgb 12.2 (12.0-16.0) g/dL Hct 37.2 (37.0-47.0) % MCV 87.1 (80-100) fL MCH 28.6 (27.0-34.0) pg MCHC 32.8 L (33.0-35.0) g/dL Plt Count 453 H (150-450) 10^3/uL Neut % (Auto) 80.6 H (42.2-75.2) % Lymph % (Auto) 10.1 L (20.5-50.1) % [place] % (Auto) 8.5 H (2-8) % Eos % (Auto) 0.6 L (1.0-3.0) % Baso % (Auto) 0.2 (0.0-1.0) % Sodium 136 (135-145) mmol/L Potassium 3.7 (3.6-5.0) mmol/L Chloride 103 (101-111) mmol/L Carbon Dioxide 28.0 (21.0-31.0) mmol/L Anion Gap 8.7 BUN 3 L (7-18) mg/dL Creatinine 0.6 (0.6-1.3) mg/dL Est Cr Clr Drug Dosing 124.69 mL/min Estimated GFR (MDRD) > 60 Glucose 77 (74-105) mg/dL Calcium 7.9 L (8.4-10.2) mg/dl Vancomycin Trough 19.0 H (10-15) ug/ml Result Diagrams: 10/09/17 08:25 10/09/17 08:25 Consult PN Assessment/Plan Procedures: Procedures ASSAY OF AMYLASE (06/07/16) COMPLETE CBC W/AUTO DIFF WBC (09/30/17) COMPREHEN METABOLIC PANEL (09/30/17) CT ABD & PELV W/CONTRAST (09/30/17) DRUG TEST PRSMV DIR OPT OBS (09/30/17) EMERGENCY DEPT VISIT (09/30/17) EMERGENCY DEPT VISIT (08/07/17) EMERGENCY DEPT VISIT (06/07/16) EMERGENCY DEPT VISIT (12/06/15) HYDRATE IV INFUSION ADD-ON (06/07/16) HYDRATION IV INFUSION INIT (09/30/17) REMOVE FOREIGN BODY FROM EYE (03/24/15) ROUTINE VENIPUNCTURE (09/30/17) THER/PROPH/DIAG INJ IV PUSH (06/07/16) THER/PROPH/DIAG IV INF INIT (08/19/17) URINALYSIS AUTO W/SCOPE (09/30/17) URINE CULTURE/COLONY COUNT (08/19/17) URINE TEST (09/30/17) (1) Pelvic pain SNOMED Code(s): 71921029 Code(s): R10.2 - PELVIC AND PERINEAL PAIN Current Visit: Yes Problem List Initiated/Reviewed/Updated: Yes Plan: 22-year-old female with pelvic pain. Given her history of untreated STDs, I suspect that patient has pelvic inflammatory disease. This is further supported by patient's significant cervical motion tenderness on examination. She did receive 1 dose of Rocephin in the ED. Will start on doxycycline 100 mg BID for 14 days. Will also obtain pelvic ultrasound to assess for tubo-ovarian abscess and/or endometritis. Patient does have an IUD present; however, recommendations are that this does not need to be removed unless patient does not respond to treatment. Will continue to follow patient while hospitalized. Christy Silveira MD Requesting Provider: [facility] Date Consult Requested: 10/09/17 Reason for Consult: Pelvic pain/pelvic examination Patient History Reviewed: Yes Admission H&P Reviewed: Yes Notified Requestor: Yes Time Spent (in minutes): 30
--- NOTE | 2017-10-09 16:17 | US ---
Clinical history: 22-year-old female with pelvic pain and "cervical motion tenderness". IUD. Interpretation: Midline uterus normal size and anatomic configuration (central echoes characteristic of IUD). No sign of myometrial fibroid mass lesion, intra/extrauterine gestational sac, endometrial polyps or fluid in the canal. Symmetric normal ovaries. No adnexal mass lesion. No ovarian cysts. Free fluid in the cul-de-sac suggests possibility of recent cyst rupture. Large right ovary measures 5.9 cm L x 4.4 cm W x 3.3 cm AP diameter. Left ovary measures 3.4 cm L x 2.2 cm W the 1.68 cm AP diameter.
[2017-10-09] MEDS: metroNIDAZOLE 250 MG Tab PO SCH (20:29)
[2017-10-09] MEDS: Doxycycline 100 MG Cap PO SCH (20:29)
[2017-10-10] MEDS: Piperacillin/Tazobactam 3.375 GM in Sodium Chloride 0.9% 100 ML IV SCH ×4 (02:20→22:11)
[2017-10-10] MEDS ORDERED: Doxycycline 100 MG Cap PO ONE (06:21)
[2017-10-10] MEDS ORDERED: Acetaminophen/oxyCODONE 325-5 MG Tab PO ONE (06:21)
[2017-10-10] MEDS ORDERED: metroNIDAZOLE 250 MG Tab PO ONE (06:21)
[2017-10-10] MEDS: metroNIDAZOLE 250 MG Tab PO SCH ×2 (13:21→22:11)
[2017-10-10] MEDS: Enoxaparin 40 MG/0.4 ML Syringe SUBCUT SCH (13:21)
[2017-10-10] MEDS: Doxycycline 100 MG Cap PO SCH ×2 (13:21→22:11)
[2017-10-10 13:57] LABS: CHLORIDE,CL 105 mmol/L (101-111); SODIUM,NA 137 mmol/L (135-145)
--- NOTE | 2017-10-10 17:37 | PCM.CONSN ---
- General Info Date of Service: 10/10/17 Subjective Update: Patient states that her abdominal pain was improved today. She reports feeling "ok." She is urinating without difficulty. No fevers or chills. No new complaints today. - Review of Systems General: Reports: No Symptoms HEENT: Reports: No Symptoms Pulmonary: Reports: No Symptoms Cardiovascular: Reports: No Symptoms Gastrointestinal: Reports: Abdominal Pain Genitourinary: Reports: No Symptoms Musculoskeletal: Reports: No Symptoms Skin: Reports: No Symptoms Neurological: Reports: No Symptoms Psychiatric: Reports: No Symptoms - Patient Data Vitals - Most Recent: Last Vital Signs Temp 36.9 C 10/10/17 02:40 Pulse 81 10/10/17 02:40 Resp 20 10/10/17 02:40 BP 104/46 L 10/10/17 02:40 Pulse Ox 97 10/10/17 02:40 Weight - Most Recent: 53.705 kg I&O - Last 24 Hours: Intake & Output 10/09/17 10/10/17 10/10/17 22:59 06:59 14:59 Intake Total 1381 633 Output Total 1000 Balance 381 633 [place] Results Last 24 Hours: Microbiology 10/09/17 12:38 Wet Prep - Final Other - Vagina Med Orders - Current: Current Medications Acetaminophen (Tylenol) 650 mg PO Q4H PRN PRN Reason: Pain (Mild 1-3)/fever Doxycycline Hyclate (Vibramycin) 100 mg PO Q12HR [facility] Stop: 10/23/17 21:01 Last Admin: 10/10/17 13:21 Dose: Not Given Enoxaparin Sodium (Lovenox) 40 mg SUBCUT DAILY [facility] Last Admin: 10/10/17 13:21 Dose: Not Given Sodium Chloride (Normal Saline) 1,000 mls @ 75 mls/hr IV ASDIRECTED [facility] Stop: 10/10/17 09:00 Last Admin: 10/09/17 23:09 Dose: 75 mls/hr Piperacillin Sod/Tazobactam (Sod 3.375 gm/ Sodium Chloride) 100 mls @ 200 mls/ hr IV Q6H [facility] Last Admin: 10/10/17 13:19 Dose: Not Given Vancomycin HCl 1 gm/ Sodium (Chloride) 250 mls @ 166.667 mls/hr IV Q8H [facility] Last Admin: 10/10/17 13:20 Dose: Not Given Metronidazole (Metronidazole) 500 mg PO Q12HR [facility] Stop: 10/16/17 21:01 Last Admin: 10/10/17 13:21 Dose: Not Given Morphine Sulfate (Morphine) 2 mg IVPUSH Q2H PRN PRN Reason: Pain (severe 7-10) Last Admin: 10/08/17 13:24 Dose: 2 mg Ondansetron HCl (Zofran) 4 mg IVPUSH Q6H PRN PRN Reason: Nausea/Vomiting Last Admin: 10/08/17 01:56 Dose: 4 mg Oxycodone/Acetaminophen (Percocet 325-5 Mg) 1 tab PO Q4H PRN PRN Reason: Nasal Dryness Last Admin: 10/09/17 19:59 Dose: 1 tab Polyethylene Glycol (Miralax) 17 gm PO DAILY PRN PRN Reason: Constipation Promethazine HCl (Phenergan) 12.5 mg IM Q6H PRN PRN Reason: Nausea/Vomiting Last Admin: 10/08/17 04:02 Dose: 12.5 mg Sodium Chloride (Saline Flush) 10 ml FLUSH ASDIRECTED PRN PRN Reason: Keep Vein Open Last Admin: 10/09/17 07:51 Dose: 10 ml Vancomycin HCl (Pharmacy To Dose - Vancomycin) 1 dose .XX ASDIRECTED [facility] Zolpidem Tartrate (Ambien) 5 mg PO BEDTIME PRN PRN Reason: Sleep Discontinued Medications Ceftriaxone Sodium (Rocephin) 1 gm IVPUSH ONETIME ONE Stop: 10/08/17 00:02 Last Admin: 10/08/17 00:07 Dose: 1 gm Sodium Chloride (Normal Saline) 1,000 mls @ 500 mls/hr IV .BOLUS ONE Stop: 10/07/17 23:01 Last Admin: 10/07/17 21:10 Dose: 500 mls/hr Sodium Chloride (Normal Saline) 1,000 mls @ 500 mls/hr IV ASDIRECTED [facility] Stop: 10/08/17 03:14 Last Infusion: 10/08/17 04:41 Dose: 500 mls/hr Vancomycin HCl 1.25 gm/ Sodium (Chloride) 250 mls @ 167 mls/hr IV ONETIME ONE Stop: 10/08/17 02:32 Last Admin: 10/08/17 02:23 Dose: Not Given Vancomycin HCl 1 gm/ Sodium (Chloride) 250 mls @ 166.667 mls/hr IV ONETIME ONE Stop: 10/08/17 03:14 Last Admin: 10/08/17 02:14 Dose: 150 mls/hr Vancomycin HCl 1 gm/ Sodium (Chloride) 250 mls @ 166.667 mls/hr IV Q8H [facility] Vancomycin HCl 1 gm/ Sodium (Chloride) 250 mls @ 166.667 mls/hr IV Q8H [facility] Last Admin: 10/09/17 09:51 Dose: Not Given Magnesium Sulfate 2 gm/ Premix 50 mls @ 25 mls/hr IV ONETIME ONE Stop: 10/08/17 11:16 Last Admin: 10/08/17 13:37 Dose: 25 mls/hr Iopamidol (Isovue-300 (61%)) 75 ml IVPUSH ONETIME ONE Stop: 10/07/17 21:57 Last Admin: 10/07/17 22:08 Dose: 75 ml Ondansetron HCl (Zofran) 4 mg IV ONETIME ONE Stop: 10/07/17 21:59 Last Admin: 10/07/17 22:02 Dose: 4 mg - Exam General: Alert, Oriented GI/Abdominal Exam: Soft, Tender (Suprapubic region; Minimal in RLQ) Extremities: Normal Inspection Skin: Warm, Dry, Intact Consult PN Assessment/Plan Procedures: Procedures ASSAY OF AMYLASE (06/07/16) COMPLETE CBC W/AUTO DIFF WBC (09/30/17) COMPREHEN METABOLIC PANEL (09/30/17) CT ABD & PELV W/CONTRAST (09/30/17) DRUG TEST PRSMV DIR OPT OBS (09/30/17) EMERGENCY DEPT VISIT (09/30/17) EMERGENCY DEPT VISIT (08/07/17) EMERGENCY DEPT VISIT (06/07/16) EMERGENCY DEPT VISIT (12/06/15) HYDRATE IV INFUSION ADD-ON (06/07/16) HYDRATION IV INFUSION INIT (09/30/17) REMOVE FOREIGN BODY FROM EYE (03/24/15) ROUTINE VENIPUNCTURE (09/30/17) THER/PROPH/DIAG INJ IV PUSH (06/07/16) THER/PROPH/DIAG IV INF INIT (08/19/17) URINALYSIS AUTO W/SCOPE (09/30/17) URINE CULTURE/COLONY COUNT (08/19/17) URINE TEST (09/30/17) (1) Pelvic pain SNOMED Code(s): 68751959 Code(s): R10.2 - PELVIC AND PERINEAL PAIN Current Visit: Yes (2) PID (acute pelvic inflammatory disease) SNOMED Code(s): 284049078 Code(s): N73.0 - ACUTE PARAMETRITIS AND PELVIC CELLULITIS Current Visit: Yes Problem List Initiated/Reviewed/Updated: Yes My Orders Last 24 Hours: My Active Orders 10/09/17 12:38 CHLAMYDIA AND GONORRHEA BY TMA Routine 10/09/17 21:00 Doxycycline [Vibramycin] 100 mg PO Q12HR metroNIDAZOLE 500 mg PO Q12HR Plan: Patient was started on Flagyl 500 mg BID for 7 days last night as wet prep was positive for bacterial vaginosis. Patient's STD testing also came back today positive for both gonorrhea and chlamydia. Continue doxycycline 100 mg BID for a total of 14 days. I explained to patient that she likely has PID because the clinic could not get a hold of her regarding her STD results in July. I also stressed the importance of completing her medication and following up in clinic for a test of cure. Patient voiced her understanding. Patient likely will be discharge today or tomorrow. I will sign off from patient's care. Christy Silveira MD
--- NOTE | 2017-10-10 17:40 | PCM.PN ---
- General Info Date of Service: 10/10/17 Admission Dx/Problem (Free Text): Admission Diagnosis/Problem Admission Diagnosis/Problem Sepsis Subjective Update: Patient stated that she is feeling better today. Her pain is improving. Still have some lower abdomen pressure but no flank pain. Her vaginal drainage improved. She denies fever, chills, nausea, vomiting, chest pain, shortness breath, lateral weakness/numbness/tingling, any other symptoms or concern. - Patient Data Vitals - Most Recent: Last Vital Signs Temp 35.9 C 10/10/17 14:49 Pulse 77 10/10/17 14:49 Resp 20 10/10/17 14:49 BP 115/55 L 10/10/17 14:49 Pulse Ox 99 10/10/17 14:49 Weight - Most Recent: 53.705 kg I&O - Last 24 Hours: Intake & Output 10/10/17 10/10/17 10/10/17 06:59 14:59 22:59 Intake Total 633 Balance 633 [place] Results Last 24 Hours: Microbiology 10/09/17 12:38 Wet Prep - Final Other - Vagina Med Orders - Current: Current Medications Acetaminophen (Tylenol) 650 mg PO Q4H PRN PRN Reason: Pain (Mild 1-3)/fever Doxycycline Hyclate (Vibramycin) 100 mg PO Q12HR [facility] Stop: 10/23/17 21:01 Last Admin: 10/10/17 13:21 Dose: Not Given Enoxaparin Sodium (Lovenox) 40 mg SUBCUT DAILY [facility] Last Admin: 10/10/17 13:21 Dose: Not Given Sodium Chloride (Normal Saline) 1,000 mls @ 75 mls/hr IV ASDIRECTED [facility] Stop: 10/10/17 09:00 Last Admin: 10/09/17 23:09 Dose: 75 mls/hr Piperacillin Sod/Tazobactam (Sod 3.375 gm/ Sodium Chloride) 100 mls @ 200 mls/ hr IV Q6H [facility] Last Admin: 10/10/17 15:35 Dose: Not Given Vancomycin HCl 1 gm/ Sodium (Chloride) 250 mls @ 166.667 mls/hr IV Q8H [facility] Last Admin: 10/10/17 13:20 Dose: Not Given Metronidazole (Metronidazole) 500 mg PO Q12HR [facility] Stop: 10/16/17 21:01 Last Admin: 10/10/17 13:21 Dose: Not Given Morphine Sulfate (Morphine) 2 mg IVPUSH Q2H PRN PRN Reason: Pain (severe 7-10) Last Admin: 10/08/17 13:24 Dose: 2 mg Ondansetron HCl (Zofran) 4 mg IVPUSH Q6H PRN PRN Reason: Nausea/Vomiting Last Admin: 10/08/17 01:56 Dose: 4 mg Oxycodone/Acetaminophen (Percocet 325-5 Mg) 1 tab PO Q4H PRN PRN Reason: Nasal Dryness Last Admin: 10/09/17 19:59 Dose: 1 tab Polyethylene Glycol (Miralax) 17 gm PO DAILY PRN PRN Reason: Constipation Promethazine HCl (Phenergan) 12.5 mg IM Q6H PRN PRN Reason: Nausea/Vomiting Last Admin: 10/08/17 04:02 Dose: 12.5 mg Sodium Chloride (Saline Flush) 10 ml FLUSH ASDIRECTED PRN PRN Reason: Keep Vein Open Last Admin: 10/09/17 07:51 Dose: 10 ml Vancomycin HCl (Pharmacy To Dose - Vancomycin) 1 dose .XX ASDIRECTED [facility] Zolpidem Tartrate (Ambien) 5 mg PO BEDTIME PRN PRN Reason: Sleep Discontinued Medications Ceftriaxone Sodium (Rocephin) 1 gm IVPUSH ONETIME ONE Stop: 10/08/17 00:02 Last Admin: 10/08/17 00:07 Dose: 1 gm Sodium Chloride (Normal Saline) 1,000 mls @ 500 mls/hr IV .BOLUS ONE Stop: 10/07/17 23:01 Last Admin: 10/07/17 21:10 Dose: 500 mls/hr Sodium Chloride (Normal Saline) 1,000 mls @ 500 mls/hr IV ASDIRECTED [facility] Stop: 10/08/17 03:14 Last Infusion: 10/08/17 04:41 Dose: 500 mls/hr Vancomycin HCl 1.25 gm/ Sodium (Chloride) 250 mls @ 167 mls/hr IV ONETIME ONE Stop: 10/08/17 02:32 Last Admin: 10/08/17 02:23 Dose: Not Given Vancomycin HCl 1 gm/ Sodium (Chloride) 250 mls @ 166.667 mls/hr IV ONETIME ONE Stop: 10/08/17 03:14 Last Admin: 10/08/17 02:14 Dose: 150 mls/hr Vancomycin HCl 1 gm/ Sodium (Chloride) 250 mls @ 166.667 mls/hr IV Q8H [facility] Vancomycin HCl 1 gm/ Sodium (Chloride) 250 mls @ 166.667 mls/hr IV Q8H [facility] Last Admin: 10/09/17 09:51 Dose: Not Given Magnesium Sulfate 2 gm/ Premix 50 mls @ 25 mls/hr IV ONETIME ONE Stop: 10/08/17 11:16 Last Admin: 10/08/17 13:37 Dose: 25 mls/hr Iopamidol (Isovue-300 (61%)) 75 ml IVPUSH ONETIME ONE Stop: 10/07/17 21:57 Last Admin: 10/07/17 22:08 Dose: 75 ml Ondansetron HCl (Zofran) 4 mg IV ONETIME ONE Stop: 10/07/17 21:59 Last Admin: 10/07/17 22:02 Dose: 4 mg - Exam General: Alert, Oriented, Cooperative, No Acute Distress. No: Mild Distress, Moderate Distress, Severe Distress, Sedated, Lethargic, Obtunded HEENT: Pupils Equal, Pupils Reactive, EOMI, Mucous Membr. Moist/[place] Neck: Supple, Trachea Midline, No JVD Lungs: Clear to Auscultation, Normal Respiratory Effort Cardiovascular: Regular Rate, Regular Rhythm, No Murmurs, Irregular Rhythm GI/Abdominal Exam: Normal Bowel Sounds, Soft, Non-Tender, No Organomegaly, No Distention, No Abnormal Bruit, No Mass (Female) Exam: Deferred Back Exam: Normal Inspection, Full Range of Motion. No: CVA Tenderness (L), CVA Tenderness (R) Extremities: Normal Inspection, Normal Range of Motion, Non-Tender, No Pedal Edema, Normal Capillary Refill Skin: Warm, Dry, Intact Neurological: No New Focal Deficit Psy/Mental Status: Alert, Normal Affect, Normal Mood. No: Suicidal Ideation, Homicidal Ideation, Hallucinations - Problem List & Annotations (1) Nausea and vomiting SNOMED Code(s): 16386509 Code(s): R11.2 - NAUSEA WITH VOMITING, UNSPECIFIED Status: Acute Current Visit: Yes (2) Sepsis SNOMED Code(s): 29998374 Code(s): A41.9 - SEPSIS, UNSPECIFIED ORGANISM Status: Acute Priority: High Current Visit: Yes (3) Hyponatremia SNOMED Code(s): 29655597 Code(s): E87.1 - HYPO-OSMOLALITY AND HYPONATREMIA Status: Acute Priority : Low Current Visit: Yes (4) Pyelonephritis SNOMED Code(s): 30212360 Code(s): N12 - TUBULO-INTERSTITIAL NEPHRITIS, NOT SPCF ACUTE OR CHRONIC Status: Acute Priority: High Current Visit: Yes (5) Methamphetamine abuse SNOMED Code(s): 458914906 Code(s): F15.10 - OTHER STIMULANT ABUSE, UNCOMPLICATED Status: Chronic Current Visit: No (6) IVDU (intravenous drug user) SNOMED Code(s): 719367529 Code(s): F19.90 - OTHER PSYCHOACTIVE SUBSTANCE USE, UNSPECIFIED, UNCOMPLICATED Status: Acute Current Visit: No - Problem List Review Problem List Initiated/Reviewed/Updated: Yes - My Orders Last 24 Hours: My Active Orders 10/10/17 05:11 BASIC METABOLIC PANEL,BMP [CHEM] AM CBC WITH AUTO DIFF [HEME] AM CRP [C-REACTIVE PROTEIN] [CHEM] AM 10/10/17 08:30 VANCOMYCIN TROUGH [CHEM] Timed - Plan Plan:: Impression 22-year-old female with the past medical history of IV drug use and recurrent UTI presented with clinical picture of pyelonephritis and sepsis/ urosepsis. Her urine culture came back with the multiple organism. Vaginal prep was positive for bacterial vaginosis, negative for Trichomonas and yeast Patient was positive for gonorrhea and chlamydia infection on 08/18/17 for which she did not come to the clinic for treatment Plan Patient received 1 L of normal saline as a bolus in the emergency room. She was also received 1 dose of Rocephin. Then she received another 1 L of normal saline at 500 mL per hour -Stop IV fluid and encourage oral fluid -Continue Zosyn and vancomycin for one more day -Start doxycycline and metronidazole. -Awaiting final blood culture results -Morphine and Percocet for pain as needed -Zofran and promethazine for nausea as needed -Patient was counseled not to use IV or any other kind of illicit drugs. She was advised to seek outpatient or inpatient counseling and speak to her primary care provider about that. Lovenox for DVT prophylaxis Full code Plan of care was discussed with patient and she verbalized understanding
[2017-10-11] MEDS: Piperacillin/Tazobactam 3.375 GM in Sodium Chloride 0.9% 100 ML IV SCH ×2 (04:25→08:29)
[2017-10-11] MEDS: metroNIDAZOLE 250 MG Tab PO SCH (08:29)
[2017-10-11] MEDS: Doxycycline 100 MG Cap PO SCH (08:29)
[2017-10-11] MEDS: Enoxaparin 40 MG/0.4 ML Syringe SUBCUT SCH (08:29)
--- NOTE | 2017-10-11 09:59 | PCM.DCSUM1 ---
Discharge Summary - Hospital Course Free Text/Narrative:: 22-year-old female with past medical history of drug abuse, recurrent UTI, absence of kidney on the left side presented to the emergency room for having fever, chills, nausea, vomiting, lower abdominal pain, right flank pain started 3 AM on 10/07/17. Prior to that patient was having urinary dysuria and lower abdomen pressure for 10 days. One week before admission she was started on metronidazole and Bactrim for UTI. Patient admitted using IV methamphetamine. Also she admits using marijuana. Patient denies headache, upper respiratory symptoms, chest pain, shortness breath, palpitation, diarrhea, blood in the urine, versus edema, any other symptoms or concern. Patient has Mirena device placed last January. and she doesn't think she is . Patient denies history of kidney infection in the past. She denies any other chronic disease. She denies taking prescribed or [id number] medications on regular basis. In emergency room patient laboratory data reported WBC 23.3 with left shift. CRP 8.6. Sodium 132. Potassium 4.0. Creatinine 0.7. B UN 11. Lipase 17. Lactic acid 0.7. AST 17. ALT 12. Alk phosphatase 77. Urinalysis reported positive nitrate, small leukocyte esterase, negative hCG. There was no enough urine to do microscope urinalysis. Urine toxicology reported positive amphetamine, methamphetamine, MDMA, marijuana. she declined using MDMA. CT abdomen reported no acute findings. Laboratory data including WBC and CRP are trending downward gradually. Today her WBC 13.3. CRP was 17.0 on second day of admission and today CRP is 10.5. Blood culture are still negative. Urine culture grew out multi-organisms. Patient was started on vancomycin and Zosyn on admission and continued for 3 days.. She received one dose of ceftriaxone 1 g in emergency room. Patient gradually was getting better. On next day after admission her flank pain and tenderness resolved. She continued to have some lower abdomen pressure when she urinates. Patient admitted having vaginal discharge so I consulted Dr. Silveira reported pelvic exam and wet prep was positive for bacterial vaginosis. Was found from patient's Epic chart that patient was positive for gonorrhea and chlamydia infection on 08/18/17 for which she did not go back to the clinic for treatment. Patient wanted to leave AGAINST MEDICAL ADVICE yesterday believing that she is feeling good and does not need further treatment. however she changed her mind later and stated. Patient was discharged home on metronidazole and doxycycline orally and informed follow-up with Dr. Silveira in clinic early next week. Patient verbalized understanding and agreed with the plan - Discharge Data Discharge Date: 10/11/17 Discharge Disposition: Home, Self-Care 01 Condition: Good - Discharge Diagnosis/Problem(s) (1) Nausea and vomiting SNOMED Code(s): 59650698 ICD Code: R11.2 - NAUSEA WITH VOMITING, UNSPECIFIED Status: Acute Current Visit: Yes (2) Sepsis SNOMED Code(s): 96961637 ICD Code: A41.9 - SEPSIS, UNSPECIFIED ORGANISM Status: Acute Priority: High Current Visit: Yes (3) Hyponatremia SNOMED Code(s): 25362805 ICD Code: E87.1 - HYPO-OSMOLALITY AND HYPONATREMIA Status: Resolved Priority: Low Current Visit: Yes (4) Pyelonephritis SNOMED Code(s): 47675445 ICD Code: N12 - TUBULO-INTERSTITIAL NEPHRITIS, NOT SPCF ACUTE OR CHRONIC Status: Ruled-out Priority: High Current Visit: Yes (5) Methamphetamine abuse SNOMED Code(s): 719539935 ICD Code: F15.10 - OTHER STIMULANT ABUSE, UNCOMPLICATED Status: Chronic Current Visit: No (6) IVDU (intravenous drug user) SNOMED Code(s): 932552391 ICD Code: F19.90 - OTHER PSYCHOACTIVE SUBSTANCE USE, UNSPECIFIED, UNCOMPLICATED Status: Acute Current Visit: No (7) PID (acute pelvic inflammatory disease) SNOMED Code(s): 546185056 ICD Code: N73.0 - ACUTE PARAMETRITIS AND PELVIC CELLULITIS Status: Acute Current Visit: Yes (8) BV (bacterial vaginosis) SNOMED Code(s): 342170356 ICD Code: N76.0 - ACUTE VAGINITIS; B96.89 - OTH BACTERIAL AGENTS THE CAUSE OF DISEASES CLASSD ELSWHR Status: Acute Current Visit: No - Patient Summary/Data Consults: Consultations 10/09/17 09:23 Consult to Physician [CONS] Urgent - Patient Instructions Diet: Heart Healthy Diet Activity: As Tolerated Showering/Bathing: May Shower Notify Provider of: Fever, Drainage, Nausea and/or Vomiting - Discharge Plan Prescriptions/Med Rec: Doxycycline Calcium [IMW: Doxycycline] 100 mg PO Q12HR #18 capsule metroNIDAZOLE 500 mg PO Q12HR #12 tablet Home Medications: Home Meds Acetaminophen [Tylenol] 650 mg PO Q4H PRN 5 Days tablet 10/11/17 [Rx] Doxycycline Calcium [IMW: Doxycycline] 100 mg PO Q12HR #18 capsule 10/11/17 [Rx] metroNIDAZOLE 500 mg PO Q12HR #12 tablet 10/11/17 [Rx] Referrals: PCP,Unobtain [Primary Care Provider] - - General Info Date of Service: 10/11/17 Admission Dx/Problem (Free Text: Admission Diagnosis/Problem Admission Diagnosis/Problem Sepsis Subjective Update: Patient stated that she is feeling much better. She denies any flank pain or abdominal pain but she reported lower abdominal pressure with urinating. She denies fever, chills, nausea, vomiting, chest pain, shortness breath, lateral weakness/numbness/tingling, any other symptoms or concern. - Patient Data Vitals - Most Recent: Last Vital Signs Temp 36.4 C 10/11/17 08:30 Pulse 82 10/11/17 08:30 Resp 20 10/11/17 08:30 BP 108/63 10/11/17 08:30 Pulse Ox 98 10/11/17 08:30 Weight - Most Recent: 53.07 kg I&O - Last 24 hours: Intake & Output 10/10/17 10/11/17 10/11/17 22:59 06:59 14:59 Intake Total 100 Balance 100 Lab Results - Last 24 hrs: Laboratory Results - last 24 hr 10/09/17 10/10/17 10/10/17 Range/Units 12:38 07:55 07:55 WBC 17.2 H (5.0-10.0) 10^3/uL RBC 4.07 L (4.2-5.4) 10^6/uL Hgb 11.8 L (12.0-16.0) g/dL Hct 35.8 L (37.0-47.0) % MCV 88.0 (80-100) fL MCH 29.0 (27.0-34.0) pg MCHC 33.0 (33.0-35.0) g/dL Plt Count 504 H (150-450) 10^3/uL Neut % (Auto) 87.0 H (42.2-75.2) % Lymph % (Auto) 6.4 L (20.5-50.1) % [place] % (Auto) 5.9 (2-8) % Eos % (Auto) 0.6 L (1.0-3.0) % Baso % (Auto) 0.1 (0.0-1.0) % Sodium 137 (135-145) mmol/L Potassium 3.9 (3.6-5.0) mmol/L Chloride 105 (101-111) mmol/L Carbon Dioxide 25.0 (21.0-31.0) mmol/L Anion Gap 10.9 BUN 2 L (7-18) mg/dL Creatinine 0.6 (0.6-1.3) mg/dL Est Cr Clr Drug Dosing 124.69 mL/min Estimated GFR (MDRD) > 60 Glucose 80 (74-105) mg/dL Calcium 8.2 L (8.4-10.2) mg/dl C-Reactive Protein (0.0-1.3) mg/dL Vancomycin Trough (10-15) ug/ml Chlamydia/GC Source Genital C.trachomatis RNA (TMA) Positive H (Negative) N.gonorrhoeae RNA (TMA) Positive H (Negative) 10/10/17 10/10/17 10/11/17 Range/Units 07:55 07:55 08:04 WBC 13.3 H (5.0-10.0) 10^3/uL RBC 4.22 (4.2-5.4) 10^6/uL Hgb 12.1 (12.0-16.0) g/dL Hct 36.8 L (37.0-47.0) % MCV 87.2 (80-100) fL MCH 28.7 (27.0-34.0) pg MCHC 32.9 L (33.0-35.0) g/dL Plt Count 576 H (150-450) 10^3/uL Neut % (Auto) 86.4 H (42.2-75.2) % Lymph % (Auto) 8.0 L (20.5-50.1) % [place] % (Auto) 4.4 (2-8) % Eos % (Auto) 1.1 (1.0-3.0) % Baso % (Auto) 0.1 (0.0-1.0) % Sodium (135-145) mmol/L Potassium (3.6-5.0) mmol/L Chloride (101-111) mmol/L Carbon Dioxide (21.0-31.0) mmol/L Anion Gap BUN (7-18) mg/dL Creatinine (0.6-1.3) mg/dL Est Cr Clr Drug Dosing mL/min Estimated GFR (MDRD) Glucose (74-105) mg/dL Calcium (8.4-10.2) mg/dl C-Reactive Protein 17.0 H (0.0-1.3) mg/dL Vancomycin Trough 14.2 (10-15) ug/ml Chlamydia/GC Source C.trachomatis RNA (TMA) (Negative) N.gonorrhoeae RNA (TMA) (Negative) 10/11/17 Range/Units 08:04 WBC (5.0-10.0) 10^3/uL RBC (4.2-5.4) 10^6/uL Hgb (12.0-16.0) g/dL Hct (37.0-47.0) % MCV (80-100) fL MCH (27.0-34.0) pg MCHC (33.0-35.0) g/dL Plt Count (150-450) 10^3/uL Neut % (Auto) (42.2-75.2) % Lymph % (Auto) (20.5-50.1) % [place] % (Auto) (2-8) % Eos % (Auto) (1.0-3.0) % Baso % (Auto) (0.0-1.0) % Sodium (135-145) mmol/L Potassium (3.6-5.0) mmol/L Chloride (101-111) mmol/L Carbon Dioxide (21.0-31.0) mmol/L Anion Gap BUN (7-18) mg/dL Creatinine (0.6-1.3) mg/dL Est Cr Clr Drug Dosing mL/min Estimated GFR (MDRD) Glucose (74-105) mg/dL Calcium (8.4-10.2) mg/dl C-Reactive Protein 10.5 H (0.0-1.3) mg/dL Vancomycin Trough (10-15) ug/ml Chlamydia/GC Source C.trachomatis RNA (TMA) (Negative) N.gonorrhoeae RNA (TMA) (Negative) Med Orders - Current: Current Medications Acetaminophen (Tylenol) 650 mg PO Q4H PRN PRN Reason: Pain (Mild 1-3)/fever Doxycycline Hyclate (Vibramycin) 100 mg PO Q12HR [facility] Stop: 10/23/17 21:01 Last Admin: 10/11/17 08:29 Dose: 100 mg Enoxaparin Sodium (Lovenox) 40 mg SUBCUT DAILY [facility] Last Admin: 10/11/17 08:29 Dose: 40 mg Piperacillin Sod/Tazobactam (Sod 3.375 gm/ Sodium Chloride) 100 mls @ 200 mls/ hr IV Q6H [facility] Last Admin: 10/11/17 08:29 Dose: 200 mls/hr Vancomycin HCl 1 gm/ Sodium (Chloride) 250 mls @ 166.667 mls/hr IV Q8H [facility] Last Admin: 10/11/17 09:28 Dose: 166.667 mls/hr Metronidazole (Metronidazole) 500 mg PO Q12HR [facility] Stop: 10/16/17 21:01 Last Admin: 10/11/17 08:29 Dose: 500 mg Morphine Sulfate (Morphine) 2 mg IVPUSH Q2H PRN PRN Reason: Pain (severe 7-10) Last Admin: 10/08/17 13:24 Dose: 2 mg Ondansetron HCl (Zofran) 4 mg IVPUSH Q6H PRN PRN Reason: Nausea/Vomiting Last Admin: 10/08/17 01:56 Dose: 4 mg Oxycodone/Acetaminophen (Percocet 325-5 Mg) 1 tab PO Q4H PRN PRN Reason: Nasal Dryness Last Admin: 10/09/17 19:59 Dose: 1 tab Polyethylene Glycol (Miralax) 17 gm PO DAILY PRN PRN Reason: Constipation Promethazine HCl (Phenergan) 12.5 mg IM Q6H PRN PRN Reason: Nausea/Vomiting Last Admin: 10/08/17 04:02 Dose: 12.5 mg Sodium Chloride (Saline Flush) 10 ml FLUSH ASDIRECTED PRN PRN Reason: Keep Vein Open Last Admin: 10/09/17 07:51 Dose: 10 ml Vancomycin HCl (Pharmacy To Dose - Vancomycin) 1 dose .XX ASDIRECTED [facility] Zolpidem Tartrate (Ambien) 5 mg PO BEDTIME PRN PRN Reason: Sleep Discontinued Medications Ceftriaxone Sodium (Rocephin) 1 gm IVPUSH ONETIME ONE Stop: 10/08/17 00:02 Last Admin: 10/08/17 00:07 Dose: 1 gm Sodium Chloride (Normal Saline) 1,000 mls @ 500 mls/hr IV .BOLUS ONE Stop: 10/07/17 23:01 Last Admin: 10/07/17 21:10 Dose: 500 mls/hr Sodium Chloride (Normal Saline) 1,000 mls @ 500 mls/hr IV ASDIRECTED [facility] Stop: 10/08/17 03:14 Last Infusion: 10/08/17 04:41 Dose: 500 mls/hr Sodium Chloride (Normal Saline) 1,000 mls @ 75 mls/hr IV ASDIRECTED [facility] Stop: 10/10/17 09:00 Last Admin: 10/09/17 23:09 Dose: 75 mls/hr Vancomycin HCl 1.25 gm/ Sodium (Chloride) 250 mls @ 167 mls/hr IV ONETIME ONE Stop: 10/08/17 02:32 Last Admin: 10/08/17 02:23 Dose: Not Given Vancomycin HCl 1 gm/ Sodium (Chloride) 250 mls @ 166.667 mls/hr IV ONETIME ONE Stop: 10/08/17 03:14 Last Admin: 10/08/17 02:14 Dose: 150 mls/hr Vancomycin HCl 1 gm/ Sodium (Chloride) 250 mls @ 166.667 mls/hr IV Q8H [facility] Vancomycin HCl 1 gm/ Sodium (Chloride) 250 mls @ 166.667 mls/hr IV Q8H [facility] Last Admin: 10/09/17 09:51 Dose: Not Given Magnesium Sulfate 2 gm/ Premix 50 mls @ 25 mls/hr IV ONETIME ONE Stop: 10/08/17 11:16 Last Admin: 10/08/17 13:37 Dose: 25 mls/hr Iopamidol (Isovue-300 (61%)) 75 ml IVPUSH ONETIME ONE Stop: 10/07/17 21:57 Last Admin: 10/07/17 22:08 Dose: 75 ml Ondansetron HCl (Zofran) 4 mg IV ONETIME ONE Stop: 10/07/17 21:59 Last Admin: 10/07/17 22:02 Dose: 4 mg - Exam General: Reports: Alert, Oriented, Cooperative, No Acute Distress. Denies: Mild Distress, Moderate Distress, Severe Distress, Sedated, Lethargic, Obtunded HEENT: Reports: Pupils Equal, Pupils Reactive, EOMI, Mucous Membr. Moist/[place] Neck: Reports: Supple, Trachea Midline Lungs: Reports: Clear to Auscultation, Normal Respiratory Effort Cardiovascular: Reports: Regular Rate, Regular Rhythm, No Murmurs GI/Abdominal Exam: Normal Bowel Sounds, Soft, Non-Tender, No Organomegaly, No Distention, No Abnormal Bruit, Pelvis Stable, Tender (On the lower abdomen discomfort with deep palpation) (Female) Exam: Deferred Rectal (Female) Exam: Deferred Back Exam: Reports: Normal Inspection, Full Range of Motion. Denies: CVA Tenderness (L), CVA Tenderness (R) Extremities: Normal Inspection, Normal Range of Motion, Non-Tender, No Pedal Edema, Normal Capillary Refill Skin: Reports: Dry, Intact. Denies: Rash Wound/Incisions: Reports: Erythema Improving Psy/Mental Status: Reports: Alert, Normal Affect, Normal Mood *Q Meaningful Use (DIS) - VTE *Q VTE Criteria *Q: - Stroke *Q Stroke Criteria *Q: - AMI *Q AMI Criteria *Q:
[2017-10-11 11:04] VITALS: BP 102/58
== END 2017-10-11 11:45 | disposition home or self-care (01) | DRG 720 ==
LOC: DL.ED 20:41 → DL.MS 10-08 00:10 → UNDOADMIN 10-08 00:10 → DL.MS 10-08 01:05
PROVIDERS: ADMIT Family Medicine; ATTEND Family Medicine
DX: A41.9 Sepsis, unspecified organism (principal); N12 Tubulo-interstitial nephritis, not specified as acute or chronic; E87.1 Hypo-osmolality and hyponatremia; F15.10 Other stimulant abuse, uncomplicated; R11.2 Nausea with vomiting, unspecified; F19.90 Other psychoactive substance use, unspecified, uncomplicated; R10.2 Pelvic and perineal pain
CPT/HCPCS: 36415; 74177; 76856; 80048; 80053; 80202; 80305; 81003; 81025; 82150; 83605; 83690; 83735; 85025; 85027; 86140; 87040; 87086; 87210; 87491; 87591; 96361; 96374; 96375; 99285; A9270-GY; J0696; J1650; J2270; J2405; J2543; J2550; J3370; J3475; J7030; J7050; Q9967